=== PATIENT | male | born 1935 | race Caucasian/White ===

== ENCOUNTER 2016-11-01 19:52 | Emergency (ER) | payer MEDICARE, OTHER ==
[~2016-11-01] VITALS: Ht 160 cm; Wt 80.0 kg
[~2016-11-01 19:52] MED LIST: AMIT25TA28 PO; ASPI81TA28 PO; CLOT1CRE TOP; GABA-560 PO; HYDR25TA32 PO; LISI40TA4 PO; METF500T4 PO; METO25TE47 PO; PRAV80TA17 PO; SIMV40TA5 PO; [UNRECOGNIZED DRUG - CODE] PO
[2016-11-01 19:55] VITALS: BP 165/90
--- NOTE | 2016-11-01 20:10 | NUR ---
AMBULATED TO ER BED 7
--- NOTE | 2016-11-01 20:11 | NUR ---
80 Y/O M W/C/O SKIN TEAR WITH AN OBJECT DOOR TO R FOREARM X TODAY. BLEEDING UNDER CONTROL. NO OTHER S/S OF DISTRESS NOTED. ER MD MADE AWARE.
--- NOTE | 2016-11-01 20:13 | NUR ---
Patient being evaluated by physician at bedside.
[2016-11-01 20:42] VITALS: BP 143/87
--- NOTE | 2016-11-01 20:42 | NUR ---
Patient discharged with v/s stable. Written and verbal after care instructions given and explained. Patient alert, oriented and verbalized understanding of instructions. Ambulatory with steady gait. All questions addressed prior to discharge. ID band removed. Patient advised to follow up with PMD IN 2-3 DAYS.
== END 2016-11-01 20:42 | disposition home or self-care (01) ==
LOC: MED 19:52
DX: S51.011A Laceration without foreign body of right elbow, initial encounter (principal); E11.9 Type 2 diabetes mellitus without complications; I10 Essential (primary) hypertension; Z79.82 Long term (current) use of aspirin; Z85.038 Personal history of other malignant neoplasm of large intestine; W26.8XXA Contact with other sharp object(s), not elsewhere classified, initial encounter; Y93.89 Activity, other specified; Y92.89 Other specified places as the place of occurrence of the external cause; Y99.8 Other external cause status
CPT/HCPCS: 90471; 90715; 99283

== ENCOUNTER 2016-11-10 10:01 | Emergency (ER) | payer MEDICARE, OTHER ==
[~2016-11-10] VITALS: Ht 165.1 cm; Wt 81.6 kg
[2016-11-10 11:20] VITALS: BP 172/85
--- NOTE | 2016-11-10 11:52 | NUR ---
Patient ambulated to bed 8. RN evaluating patient at bedside.
[2016-11-10 12:01] LABS: BASOPHILS # (AUTO) 0.3 K/uL (0.00-0.22); EOSINOPHILS # (AUTO) 0.3 K/uL (0-0.4); HEMATOCRIT 50.6 % (36-52); HEMOGLOBIN 16.5 g/dL (12.0-18.0); LYMPHOCYTES # (AUTO) 1.3 K/uL (2.0-11.5); LYMPHOCYTES % (AUTO) 15.3 % (20.5-51.1); MEAN CORPUSCULAR HEMOGLOBIN 30 pg (27-31); MEAN CORPUSCULAR HGB CONC 33 g/dL (33-37); MEAN CORPUSCULAR VOLUME 93 fL (80-94); MONOCYTES # (AUTO) 0.8 K/uL (0.8-1.0); MONOCYTES % (AUTO) 9.1 % (1.7-9.3); NEUTROPHILS # (AUTO) 5.8 K/uL (1.8-7.7); NEUTROPHILS % (AUTO) 68.6 % (42.2-75.2); PLATELET COUNT (AUTO) 218 K/uL (140-450); RED BLOOD CELL COUNT(AUTO) 5.45 MIL/uL (4.20-6.10); WHITE BLOOD COUNT (AUTO) 8.5 K/uL (4.8-10.8)
[2016-11-10 12:17] LABS: ANION GAP 11.5 (8-16); CARBON DIOXIDE 23.2 mmol/L (21-32); CHLORIDE 109 mmol/L (98-107); CREATININE 0.7 mg/dL (0.7-1.3); GLUCOSE 125 mg/dL (74-106); POTASSIUM 3.7 mmol/L (3.5-5.1); SODIUM SERUM 140 mmol/L (136-145); UREA NITROGEN, BLOOD 11 mg/dL (7-18)
[2016-11-10 12:22] LABS: ALBUMIN 3.6 g/dL (3.4-5.0); ASPARTATE AMINOTRANSFERASE 30 U/L (15-37); TOTAL BILIRUBIN 1.2 mg/dL (0.0-1.0)
--- NOTE | 2016-11-10 12:25 | NUR ---
FIRST CONTACT WITH PT. 80 YO MALE C/O PRODUCTIVE COUGH X5D, WITH YELLOW PHLEM. A&OX4, VSS, GURNEY TO LOWEST LEVEL,BED RAIL UP, RESTING ON GURNEY
[2016-11-10 12:31] VITALS: BP 172/85
--- NOTE | 2016-11-10 12:32 | NUR ---
Patient discharged with v/s stable. Written and verbal after care instructions given and explained. Patient alert, oriented and verbalized understanding of instructions. Ambulatory with steady gait. All questions addressed prior to discharge. ID band removed. Patient advised to follow up with PMD. Rx of KEFLEX, PROMETHAZINE given. Patient educated on indication of medication including possible reaction and side effects. Opportunity to ask questions provided and answered.
== END 2016-11-10 12:32 | disposition home or self-care (01) ==
LOC: MED 10:01
DX: J20.9 Acute bronchitis, unspecified (principal); Z85.038 Personal history of other malignant neoplasm of large intestine; E11.9 Type 2 diabetes mellitus without complications; F03.90 Unspecified dementia, unspecified severity, without behavioral disturbance, psychotic disturbance, mood disturbance, and anxiety
CPT/HCPCS: 36415; 71010; 80053; 85025; 99285

== ENCOUNTER 2017-12-05 21:32 | Emergency (ER) | payer MEDICARE, OTHER ==
[~2017-12-05] VITALS: Ht 154.9 cm; Wt 79.4 kg
[~2017-12-05 21:32] MED LIST changes: +ASPI-1271 PO; -ASPI81TA28 PO; -METF500T4 PO; +METF500T6 PO; -METO25TE47 PO; +METO25TE71 PO
[2017-12-05 21:58] VITALS: BP 158/86
--- NOTE | 2017-12-05 21:58 | NUR ---
TO BED # 5 AMBULATORY, REPORT GIVEN TO PEYTON DUARTE
--- NOTE | 2017-12-05 22:00 | NUR ---
PT PRESENTED ER WITH POST STATUS FALL. PT FELL ANF HIT SOME WOOD AND SCRATCHED HIS LEFT ARM TODAY. AN ABRASION TO THE LEFT FOREARM. SOME MINOR BRUSING AND SMALL LACERASIONS TO THE ARM. PT IS A/O X 4. PT STATES NO PAIN AT THIS TIME 0/10.PT STATES NO LOC, DENIES HITTING HEAD OR INJURY TO ANY OTHER PART OF BODY. NKA AND MEDICAL HX IS DM AND COLON CANCER. FAMILY AT BEDSIDE. SKIN IS PINK/WARM/DRY; WITH EVEN AND STEADY GAIT; VSS; PATIENT POSITIONED FOR COMFORT; HOB ELEVATED; BEDRAILS UP X2; BED DOWN. ER MD MADE AWARE OF PT STATUS.
[2017-12-05] MEDS ORDERED: BACITRACIN OINT 500 UNITS/GM PKT TP ONE (22:30)
--- NOTE | 2017-12-05 22:54 | NUR ---
XRAY AT BEDSIDE
[2017-12-05 22:57] LABS: BASOPHILS % (AUTO) 0.4 % (0.0-2.0); EOSINOPHILS # (AUTO) 0.2 K/uL (0-0.4); EOSINOPHILS % (AUTO) 2.5 % (0.0-4.0); HEMOGLOBIN 16.1 g/dL (12.0-18.0); LYMPHOCYTES # (AUTO) 1.5 K/uL (2.0-11.5); LYMPHOCYTES % (AUTO) 15.7 % (20.5-51.1); MEAN CORPUSCULAR HEMOGLOBIN 31 pg (27-31); MEAN CORPUSCULAR HGB CONC 34 g/dL (33-37); MEAN CORPUSCULAR VOLUME 92.2 fL (80-94); MONOCYTES # (AUTO) 1.2 K/uL (0.8-1.0); NEUTROPHILS # (AUTO) 6.8 K/uL (1.8-7.7); NEUTROPHILS % (AUTO) 69.4 % (42.2-75.2); PLATELET COUNT (AUTO) 208 K/uL (140-450); RED CELL DISTRIBUTION WIDTH 14.2 % (11.6-13.7); WHITE BLOOD COUNT (AUTO) 9.8 K/uL (4.8-10.8)
[2017-12-05 23:05] LABS: ANION GAP 6.1 (8-16); CARBON DIOXIDE 26.8 mmol/L (21-32); CHLORIDE 109 mmol/L (98-107); CREATININE 0.9 mg/dL (0.7-1.3); GLUCOSE 95 mg/dL (74-106); POTASSIUM 3.9 mmol/L (3.5-5.1); SODIUM SERUM 138 mmol/L (136-145); UREA NITROGEN, BLOOD 17 mg/dL (7-18)
--- NOTE | 2017-12-06 00:09 | NUR ---
PT SITTING UP IN BED, VITALS STABLE, PENDING D/C PER DR. ESPINOZA.
[2017-12-06 00:15] VITALS: BP 145/76
--- NOTE | 2017-12-06 00:15 | NUR ---
Patient discharged with v/s stable. Written and verbal after care instructions given and explained. Patient alert, oriented and verbalized understanding of instructions. Ambulatory with steady gait. All questions addressed prior to discharge. ID band removed. Patient advised to follow up with PMD. Rx of Bacitracin and Tylenol given. Patient educated on indication of medication including possible reaction and side effects. Opportunity to ask questions provided and answered.
== END 2017-12-06 00:15 | disposition home or self-care (01) ==
LOC: MED 21:32
DX: S50.812A Abrasion of left forearm, initial encounter (principal); E11.9 Type 2 diabetes mellitus without complications; F03.90 Unspecified dementia, unspecified severity, without behavioral disturbance, psychotic disturbance, mood disturbance, and anxiety; I10 Essential (primary) hypertension; Z85.038 Personal history of other malignant neoplasm of large intestine; Z79.899 Other long term (current) drug therapy; W22.8XXA Striking against or struck by other objects, initial encounter; Y93.89 Activity, other specified; Y92.89 Other specified places as the place of occurrence of the external cause; Y99.8 Other external cause status
CPT/HCPCS: 36415; 73090; 80048; 84484; 85025; 90471; 90715; 93005; 99285; Q0092

== ENCOUNTER 2019-01-23 15:36 | Observation (INO) | payer MEDICARE, OTHER ==
[~2019-01-23] VITALS: Ht 172.7 cm; Wt 73.5 kg
[~2019-01-23 15:36] MED LIST changes: +METF-988 PO; -METF500T6 PO; +SIMV-33 PO; -SIMV40TA5 PO
[2019-01-23 15:45] VITALS: BP 152/76
--- NOTE | 2019-01-23 15:45 | NUR ---
PT ARRIVED TO ED C/O CHEST PAIN X 2 WEEKS. RATES PAIN 2/10. PT STAETS IT COMES AND GOES. HEART SPUNDS S1S2 PRESENT. LUNG SOUNDS CLEAR ALL THORUGHOUT. NO COUGH PRESENT.VSS. NO DISTRESS NOTED. NKA. PMH: HIGH CHOLESTEROL, HTN, BPH.
[2019-01-23] MEDS ORDERED: ASPIRIN 81 MG TAB.CHEW PO ONE (16:10)
[2019-01-23] MEDS ORDERED: NACL 0.9% 1,000 ML IV ONE (16:10)
[2019-01-23] MEDS ORDERED: METOPROLOL 25 MG TAB PO ONE (16:15)
--- NOTE | 2019-01-23 16:34 | NUR ---
XR AT BEDSIDE.
[2019-01-23 16:36] LABS: BASOPHILS % (AUTO) 0.3 % (0.0-2.0); EOSINOPHILS # (AUTO) 0.2 K/uL (0-0.4); EOSINOPHILS % (AUTO) 2.6 % (0.0-4.0); HEMATOCRIT 48.8 % (36-52); HEMOGLOBIN 16.3 g/dL (12.0-18.0); LYMPHOCYTES # (AUTO) 1.5 K/uL (2.0-11.5); LYMPHOCYTES % (AUTO) 18.3 % (20.5-51.1); MEAN CORPUSCULAR HEMOGLOBIN 31 pg (27-31); MEAN CORPUSCULAR HGB CONC 33 g/dL (33-37); MEAN CORPUSCULAR VOLUME 93.4 fL (80-94); MONOCYTES # (AUTO) 0.6 K/uL (0.8-1.0); NEUTROPHILS % (AUTO) 71.8 % (42.2-75.2); PLATELET COUNT (AUTO) 234 K/uL (140-450); RED BLOOD CELL COUNT(AUTO) 5.22 MIL/uL (4.20-6.10); WHITE BLOOD COUNT (AUTO) 8.3 K/uL (4.8-10.8)
[2019-01-23 16:56] LABS: ALBUMIN 3.3 g/dL (3.4-5.0); ANION GAP 15.2 (8-16); ASPARTATE AMINOTRANSFERASE 23 U/L (15-37); CARBON DIOXIDE 24.6 mmol/L (21-32); CHLORIDE 105 mmol/L (98-107); CREATININE 0.8 mg/dL (0.7-1.3); GLUCOSE 102 mg/dL (74-106); POTASSIUM 3.8 mmol/L (3.5-5.1); SODIUM SERUM 141 mmol/L (136-145); TOTAL BILIRUBIN 1.4 mg/dL (0.0-1.0); UREA NITROGEN, BLOOD 15 mg/dL (7-18)
[2019-01-23] MEDS ORDERED: MORPHINE SULFATE 2 MG/ML SYR IVP PRN (18:05)
[2019-01-23] MEDS ORDERED: DOCUSATE SODIUM 100 MG GELCAP PO PRN (18:05)
[2019-01-23] MEDS ORDERED: ACETAMINOPHEN 325 MG TAB PO PRN (18:05)
[2019-01-23] MEDS ORDERED: HYDROcodone/APAP 7.5/325 MG 1 TAB PO PRN (18:05)
[2019-01-23] MEDS ORDERED: ONDANSETRON 4 MG/2 ML VIAL IM/IVP PRN (18:05)
--- NOTE | 2019-01-23 18:15 | NUR ---
PT UNABLE TO RECALL MEDICATIONS. PT WILL CALL HIS AND HAVE HER BRING DOWN HIS MEDICATIONS FOR MED RECONCILIATION.
[2019-01-23 18:36] LABS: MAGNESIUM 2.1 mg/dL (1.8-2.4); PHOSPHORUS 3.8 mg/dL (2.5-4.9); THYROID STIMULATING HORMONE 1.31 uIU/mL (0.34-3.74)
--- NOTE | 2019-01-23 18:40 | NUR ---
Patient will be admitted to care of DR. REYES. Admited to TELE. Will go to room 128B. Belongings list completed. Report to FELICIA SEGURA .
[2019-01-23 19:30] VITALS: BP 144/69
--- NOTE | 2019-01-23 19:30 | NUR ---
RECEIVED REPORT FROM AM SHIFT NURSE. PATIENT ALERT AND ORIENTED X3. LIBERIAN SPEAKING ONLY. 20 G ON LEFT AC RUNNING IVF. WITH C/O 7/10 CHEST PAIN, ACHING. MEDICATED PER PAIN SCALE. NO APPARENT DISTRESS NOTED. CONTINENT. ABLE TO AMBULATE TO BATHROOM WITH ASSISTANCE. WILL CONTINUE TO MONITOR.
[2019-01-23] MEDS: NACL 0.9% 1,000 ML IV SCH (19:56)
[2019-01-23] MEDS ORDERED: INSULIN LISPRO SLIDING SCALE 100 UNITS/ML VIAL SUBQ PRN (20:30)
[2019-01-23] MEDS ORDERED: NITROGLYCERIN 0.4 MG TAB SL PRN (20:30)
[2019-01-23] MEDS ORDERED: DEXTROSE 50% 50 ML SYR IVP PRN (20:30)
--- NOTE | 2019-01-23 21:25 | NUR ---
PATIENT AWAKE IN BED. NO APPARENT DISTRESS NOTED. WILL CONTINUE TO MONITOR.
[2019-01-23] MEDS: BLOOD GLUCOSE MONITORING 1 DEV DEV FS SCH (21:35)
[2019-01-23] MEDS ORDERED: PANTOPRAZOLE 40 MG INJ VIAL IVP SCH (22:00)
[2019-01-23] MEDS ORDERED: LISI10TA11 PO (22:44)
[2019-01-23] MEDS ORDERED: TAMS0.4C96 PO (22:44)
[2019-01-23] MEDS ORDERED: ATOR10TA PO (22:44)
[2019-01-23] MEDS ORDERED: GABA100C PO (22:44)
--- NOTE | 2019-01-23 23:20 | NUR ---
PATIENT AWAKE IN BED, RESTING WITH FAMILY. NO APPARENT DISTRESS NOTED. WILL CONTINUE TO MONITOR.
[2019-01-24] VITALS: BP 148/59
[2019-01-24 00:56] LABS: APPEARANCE,URINE CLEAR (CLEAR); BILIRUBIN,URINE NEGATIVE (NEGATIVE); BLOOD, URINE NEGATIVE (NEGATIVE); COLOR,URINE YELLOW (YELLOW); LEUKOCYTE ESTERASE ,URINE NEGATIVE (NEGATIVE); NITRITE, URINE NEGATIVE (NEGATIVE); UGLUCOSE NEGATIVE (NEGATIVE)
--- NOTE | 2019-01-24 01:15 | NUR ---
PATIENT ASLEEP IN BED. NO APPARENT DISTRESS NOTED. WILL CONTINUE TO MONITOR.
--- NOTE | 2019-01-24 03:16 | NUR ---
ROUNDS DONE. PATIENT ASLEEP IN BED. VISIBLE CHEST RISE AND FALL NOTED. NO APPARENT DISTRESS NOTED. WILL CONTINUE TO MONITOR.
[2019-01-24 04:00] VITALS: BP 117/57
--- NOTE | 2019-01-24 05:15 | NUR ---
PATIENT ASLEEP IN BED. NO APPARENT DISTRESS NOTED. VISIBLE CHEST RISE AND FALL NOTED. WILL CONTINUE TO MONITOR.
[2019-01-24] MEDS: BLOOD GLUCOSE MONITORING 1 DEV DEV FS SCH ×4 (05:49→20:49)
[2019-01-24 06:25] LABS: ANION GAP 13.1 (8-16); CARBON DIOXIDE 24.6 mmol/L (21-32); CHLORIDE 108 mmol/L (98-107); CREATININE 0.7 mg/dL (0.7-1.3); GLUCOSE 97 mg/dL (74-106); PHOSPHORUS 3.8 mg/dL (2.5-4.9); POTASSIUM 3.7 mmol/L (3.5-5.1); SODIUM SERUM 142 mmol/L (136-145); UREA NITROGEN, BLOOD 12 mg/dL (7-18)
[2019-01-24 06:42] LABS: CHOL/HDL RATIO 3.2 (1-4.5)
[2019-01-24 06:54] LABS: BASOPHILS # (AUTO) 0.1 K/uL (0.00-0.22); BASOPHILS % (AUTO) 0.7 % (0.0-2.0); EOSINOPHILS # (AUTO) 0.4 K/uL (0-0.4); EOSINOPHILS % (AUTO) 5.2 % (0.0-4.0); HEMATOCRIT 42.9 % (36-52); HEMOGLOBIN 14.3 g/dL (12.0-18.0); LYMPHOCYTES # (AUTO) 1.7 K/uL (2.0-11.5); MEAN CORPUSCULAR HEMOGLOBIN 31 pg (27-31); MEAN CORPUSCULAR HGB CONC 33 g/dL (33-37); MEAN CORPUSCULAR VOLUME 94.1 fL (80-94); MONOCYTES # (AUTO) 0.7 K/uL (0.8-1.0); MONOCYTES % (AUTO) 9.9 % (1.7-9.3); NEUTROPHILS # (AUTO) 4.5 K/uL (1.8-7.7); NEUTROPHILS % (AUTO) 61.2 % (42.2-75.2); PLATELET COUNT (AUTO) 211 K/uL (140-450); RED BLOOD CELL COUNT(AUTO) 4.55 MIL/uL (4.20-6.10); RED CELL DISTRIBUTION WIDTH 13.9 % (11.6-13.7); WHITE BLOOD COUNT (AUTO) 7.3 K/uL (4.8-10.8)
--- NOTE | 2019-01-24 07:15 | NUR ---
ENDORSED TO AM SHIFT NURSE FOR CONTINUITY OF CARE.
--- NOTE | 2019-01-24 07:17 | NUR ---
RECEIVE REPORT FROM NIGHT NURSE. PT AWAKE AND ALERT. PT IS STABLE, ON ROOM AIR RESPIRATION ARE EVEN AND UNLABORED. PT ASKED WHEN HIS BREAKFAST WAS DUE. PT WAS INFORMED OF TIME OF BREAKFAST. IV RUNNING NS AT 60 ML/HR. CALL LIGHT WITHIN REACH.
[2019-01-24 08:00] VITALS: BP 124/61
--- NOTE | 2019-01-24 08:25 | NUR ---
PATIENT HAS BEEN SCREENED AND CATEGORIZED MODERATE NUTRITION RISK. PATIENT WILL BE SEEN WITHIN 3-5 DAYS OF ADMISSION. 01/26/19 01/28/[address]
[2019-01-24] MEDS ORDERED: TAMSULOSIN 0.4 MG CAP PO SCH (08:30)
[2019-01-24] MEDS ORDERED: ASPIRIN 81 MG TAB.CHEW PO SCH (09:00)
[2019-01-24] MEDS ORDERED: LISINOPRIL 5 MG TAB PO SCH (09:00)
[2019-01-24] MEDS: METOPROLOL 25 MG TAB PO SCH ×2 (09:00→20:47)
[2019-01-24] MEDS ORDERED: LISINOPRIL 10 MG TAB PO SCH (09:00)
[2019-01-24] MEDS: NACL 0.9% 1,000 ML IV SCH (09:09)
--- NOTE | 2019-01-24 09:50 | NUR ---
PT IS AWAKE AND ALERT. PT IS WATCHING TV. PT IS STABLE, RESPIRATIONS ARE EVEN AND UNLABORED AT ROOM AIR. CALL LIGHT WITHIN REACH.
[2019-01-24] MEDS: GABAPENTIN 100 MG CAP PO SCH ×3 (10:12→16:28)
[2019-01-24] MEDS ORDERED: NITR0.4T1 SL (11:43)
[2019-01-24 12:00] VITALS: BP 131/60
--- NOTE | 2019-01-24 13:30 | NUR ---
PT IN BED, AT THE BEDSIDE. TECH AT THE BEDSIDE DOING A ECHO. PT IS STABLE, RESPIRATION ARE EVEN AND UNLABORED ON ROOM AIR. CALL LIGHT WITHIN REACH.
--- NOTE | 2019-01-24 15:20 | NUR ---
PT SITTING IN BED. PT SAID HE STILL WAITING FOR THE OTHER DOCTOR TO TALK TO HIM ABOUT ANXIETY. PT IS STABLE, RESPIRATION ARE EVEN AND UNLABORED ON ROOM AIR. CALL LIGHT WITHIN REACH. IV RUNNING 60 ML/H.
[2019-01-24 16:00] VITALS: BP 122/63
--- NOTE | 2019-01-24 16:55 | NUR ---
DC PLANNING: IP POST STABILIZATION FORM FAXED TO [facility] AT [phone].
--- NOTE | 2019-01-24 18:33 | NUR ---
PT LAYING IN BED. PT STATES HE IS STILL WAITING ON PSYCHIATRIST. PT IS STABLE, RESPIRATION ARE EVEN AND UNLABORED ON ROOM AIR. IV RUNNING NS AT 60 ML/H. AT THE BEDSIDE. CALL LIGHT WITHIN REACH.
--- NOTE | 2019-01-24 19:15 | NUR ---
GAVE REPORT TO NIGHT NURSE FOR CONTINUITY OF CARE. PT IS IN BED. PT IS STABLE, RESPIRATIONS ARE EVEN AND UNLABORED ON ROOM AIR. CALL LIGHT WITHIN REACH. AT BEDSIDE.
[2019-01-24] MEDS ORDERED: ESCI5TAB PO (19:44)
--- NOTE | 2019-01-24 20:20 | NUR ---
PT. DISCHARGED TO HOME ORDERED. DISCHARGE INSTRUCTIONS GIVEN BY PAULA RN IN [place] . PSYCH CONSULT IN HERE AND SEEN PT. REMINDED THAT PRESCRIPTIONS IN THEIR CHOICE OF PHARMACY SENT BY . "SI" NO COMPLAINTS DONE . ALL BELONGINGS ACCOUNTED FOR AND WITH OF PT. IVF SITE DISCONTINUED BY ME. COVERED WITH BAND AID. NO BLEEDING.
[2019-01-24 20:45] VITALS: BP 146/81
[2019-01-24] MEDS ORDERED: ATORVASTATIN 20 MG TAB PO SCH (21:00)
== END 2019-01-24 21:15 | disposition home or self-care (01) ==
LOC: MED 15:36 → MMU 18:06 → INTOOBSV 18:06 → MMU 18:30 → UNDODISIN 01-24 21:15
PROVIDERS: ADMIT General Practice; ATTEND General Practice
DX: R07.89 Other chest pain (principal); E44.1 Mild protein-calorie malnutrition; J98.11 Atelectasis; E11.40 Type 2 diabetes mellitus with diabetic neuropathy, unspecified; F03.90 Unspecified dementia, unspecified severity, without behavioral disturbance, psychotic disturbance, mood disturbance, and anxiety; I10 Essential (primary) hypertension; E78.5 Hyperlipidemia, unspecified; N40.0 Benign prostatic hyperplasia without lower urinary tract symptoms; Z85.038 Personal history of other malignant neoplasm of large intestine; Z79.84 Long term (current) use of oral hypoglycemic drugs; Z79.82 Long term (current) use of aspirin; Z79.899 Other long term (current) drug therapy
CPT/HCPCS: 36415; 71045; 80048; 80053; 80061; 81003; 82948; 83036; 83735; 83880; 84100; 84443; 84484; 85025; 85610; 85730; 87081; 93005; 93307; 96374; 96375; 99285; C9113; G0378; J2270; J7030; Q0092; 96360; 96361

== ENCOUNTER 2019-03-05 12:03 | Emergency (ER) | payer MEDICARE, OTHER ==
[~2019-03-05] VITALS: Ht 170.2 cm; Wt 72.6 kg
[~2019-03-05 12:03] MED LIST changes: -AMIT25TA28 PO; -ASPI-1271 PO; +ATOR10TA PO; -CLOT1CRE TOP; +ESCI5TAB PO; -GABA-560 PO; +GABA100C PO; -HYDR25TA32 PO; +LISI10TA11 PO; -LISI40TA4 PO; -METF-988 PO; -METO25TE71 PO; +NITR0.4T1 SL; -PRAV80TA17 PO; -SIMV-33 PO; +TAMS0.4C96 PO; -[UNRECOGNIZED DRUG - CODE] PO
[2019-03-05 12:17] VITALS: BP 143/69
--- NOTE | 2019-03-05 14:58 | NUR ---
PT AMBULATED TO ER BED 10
--- NOTE | 2019-03-05 15:29 | NUR ---
Bahamian speaking 83 y/m c/o persistant tenacious productive cough >6 months---intermittent sob nasal congestion. Full clear speech with no accessory muscle use noted at this time. Breath sound clear bilaterally on room SPO2 95% denies sob, sore throat, n/v/d, or cp at this time hx--htn, depression rx--;;
--- NOTE | 2019-03-05 17:02 | NUR ---
Patient discharged with v/s stable. Written and verbal after care instructions given and explained. Patient alert, oriented and verbalized understanding of instructions. Ambulatory with steady gait. All questions addressed prior to discharge. ID band removed. Patient advised to follow up with PMD. Rx of Motrin, Prednisone, Azithromycin given. Patient educated on indication of medication including possible reaction and side effects. Opportunity to ask questions provided and answered.
[2019-03-05 17:03] VITALS: BP 146/69
== END 2019-03-05 17:02 | disposition home or self-care (01) ==
LOC: MED 12:03
DX: R05 Cough (principal); J34.89 Other specified disorders of nose and nasal sinuses; R07.9 Chest pain, unspecified; E11.9 Type 2 diabetes mellitus without complications; F03.90 Unspecified dementia, unspecified severity, without behavioral disturbance, psychotic disturbance, mood disturbance, and anxiety; I10 Essential (primary) hypertension; Z98.890 Other specified postprocedural states; Z85.028 Personal history of other malignant neoplasm of stomach; Z79.899 Other long term (current) drug therapy
CPT/HCPCS: 71046; 99283

== ENCOUNTER 2019-03-14 17:05 | Emergency (ER) | payer MEDICARE, OTHER ==
[~2019-03-14] VITALS: Ht 162.6 cm; Wt 73.9 kg
[~2019-03-14 17:05] MED LIST changes: +AMIT25TA28 PO; +ASPI-1271 PO; +CLOT1CRE TOP; +GABA-560 PO; +HYDR25TA32 PO; +LISI40TA4 PO; +METF-988 PO; +METO25TE71 PO; +PRAV80TA17 PO; +SIMV-33 PO; +[UNRECOGNIZED DRUG - CODE] PO
[2019-03-14 17:17] VITALS: BP 121/57
--- NOTE | 2019-03-14 17:23 | NUR ---
WAIT AT LOBBY.
--- NOTE | 2019-03-14 19:24 | NUR ---
PT AMBULATED TO CHAIR C
--- NOTE | 2019-03-14 19:55 | NUR ---
ASSESSMENT COMPLETE. PATIENT SITTING UP IN CHAIR. NO DISTRESS NOTED. ASSESSMENT NOTE: BIB SELF REPORTING COUGH FOR 4 MONTHS. SEEN HERE ON 03-05-2019 AND GIVEN RX OF AZITHROMYCIN, IBUPROFEN AND PEDNISONE. HAS BEEN TAKING THE MEDICATIONS WITH NO RELIEF. STATES THAT HE STILL HAS A LOT OF MUCUS HE IS COUGHING UP AND BLOWING OUT OF HIS NOSE. HIS LUNGS ARE CLEAR BILATERALLY. ABD SOFT NON-TENDER. NO FEVERS, NVD, OR PAIN REPORTED.
[2019-03-14 21:20] VITALS: BP 121/57
--- NOTE | 2019-03-14 21:21 | NUR ---
Patient discharged with v/s stable. Written and verbal after care instructions given and explained. Patient alert, oriented and verbalized understanding of instructions. Ambulatory with steady gait. All questions addressed prior to discharge. ID band removed. Patient advised to follow up with PMD. Rx of AZITHROMYCIN, ROBOTUSSIN given. Patient educated on indication of medication including possible reaction and side effects. Opportunity to ask questions provided and answered.
== END 2019-03-14 21:21 | disposition home or self-care (01) ==
LOC: MED 17:05
DX: J20.9 Acute bronchitis, unspecified (principal); E11.9 Type 2 diabetes mellitus without complications; F03.90 Unspecified dementia, unspecified severity, without behavioral disturbance, psychotic disturbance, mood disturbance, and anxiety; I10 Essential (primary) hypertension; Z85.038 Personal history of other malignant neoplasm of large intestine; Z90.49 Acquired absence of other specified parts of digestive tract; Z79.899 Other long term (current) drug therapy
CPT/HCPCS: 71045; 99283

== ENCOUNTER 2019-04-06 12:10 | Inpatient (IN) | payer MEDICARE, OTHER ==
[~2019-04-06] VITALS: Ht 160 cm; Wt 71.7 kg
[~2019-04-06 12:10] MED LIST changes: -AMIT25TA28 PO; -ASPI-1271 PO; -CLOT1CRE TOP; -GABA-560 PO; -HYDR25TA32 PO; -LISI40TA4 PO; -METF-988 PO; -METO25TE71 PO; -PRAV80TA17 PO; -SIMV-33 PO; -[UNRECOGNIZED DRUG - CODE] PO
[2019-04-06 12:44] VITALS: BP 127/64
--- NOTE | 2019-04-06 12:47 | NUR ---
TO LOBBY, VSS. AWAITING BED IN ED.
--- NOTE | 2019-04-06 14:08 | NUR ---
Patient ambulated to bed 7. RN evaluating patient at bedside.
[2019-04-06] MEDS ORDERED: LEVOFLOXACIN 750 MG/D5W PREMIX 150 ML IV ONE (14:45)
[2019-04-06] MEDS ORDERED: cefTRIAXone 1,000 MG VIAL ONE (15:09)
--- NOTE | 2019-04-06 15:20 | NUR ---
83 y/o M presents to ER c/o cough x3 months. Per pt he has been taking cough medication without any relife. Denies fever/chills. Denies N/V/D. A&O x4. Vital Signs Stable. HOB elevated, bed in lowest position, bed rail up x1. Will continue to monitor. Allergies: NKA Med hx: DM, HDL, HTN
[2019-04-06] MEDS ORDERED: ACETAMINOPHEN 325 MG TAB PO PRN (15:25)
[2019-04-06] MEDS ORDERED: DOCUSATE SODIUM 100 MG GELCAP PO PRN (15:25)
[2019-04-06] MEDS ORDERED: HYDROcodone/APAP 5/325 MG 1 TAB TAB PO PRN (15:25)
[2019-04-06] MEDS ORDERED: MORPHINE SULFATE 2 MG/ML SYR IVP PRN (15:25)
[2019-04-06] MEDS ORDERED: ONDANSETRON 4 MG/2 ML VIAL IM/IVP PRN (15:25)
[2019-04-06] MEDS ORDERED: DEXTROSE 50% 50 ML SYR IVP PRN ×2 (15:30→16:35)
[2019-04-06 15:38] LABS: BASOPHILS % (AUTO) 0.5 % (0.0-2.0); EOSINOPHILS % (AUTO) 0.4 % (0.0-4.0); HEMATOCRIT 46.3 % (36-52); LYMPHOCYTES # (AUTO) 0.7 K/uL (2.0-11.5); LYMPHOCYTES % (AUTO) 10.2 % (20.5-51.1); MEAN CORPUSCULAR HEMOGLOBIN 30 pg (27-31); MEAN CORPUSCULAR HGB CONC 32 g/dL (33-37); MEAN CORPUSCULAR VOLUME 93.6 fL (80-94); MONOCYTES # (AUTO) 0.2 K/uL (0.8-1.0); MONOCYTES % (AUTO) 2.9 % (1.7-9.3); NEUTROPHILS # (AUTO) 6.3 K/uL (1.8-7.7); PLATELET COUNT (AUTO) 247 K/uL (140-450); RED BLOOD CELL COUNT(AUTO) 4.95 MIL/uL (4.20-6.10); RED CELL DISTRIBUTION WIDTH 13.9 % (11.6-13.7); WHITE BLOOD COUNT (AUTO) 7.3 K/uL (4.8-10.8)
--- NOTE | 2019-04-06 15:57 | NUR ---
Pt ambulated to restroom to provide urine sample
[2019-04-06 16:00] VITALS: BP 128/53
[2019-04-06 16:04] LABS: MAGNESIUM 2.3 mg/dL (1.8-2.4); PHOSPHORUS 3.4 mg/dL (2.5-4.9)
[2019-04-06 16:06] LABS: ALBUMIN 3.2 g/dL (3.4-5.0); ANION GAP 11.1 (8-16); ASPARTATE AMINOTRANSFERASE 18 U/L (15-37); CARBON DIOXIDE 27.9 mmol/L (21-32); CHLORIDE 103 mmol/L (98-107); CREATININE 0.7 mg/dL (0.6-1.3); GLUCOSE 107 mg/dL (74-106); SODIUM SERUM 138 mmol/L (136-145); TOTAL BILIRUBIN 0.9 mg/dL (0.0-1.0); UREA NITROGEN, BLOOD 9 mg/dL (7-18)
--- NOTE | 2019-04-06 16:15 | NUR ---
Transfer of care and report given to FELICIA Schmid
--- NOTE | 2019-04-06 16:16 | NUR ---
Patient will be admitted to care of Dr. Simon. Admited to Tele. Will go to room 126A. Belongings list completed. Report to FELICIA Schmid.
[2019-04-06 16:20] LABS: PROTHROMBIN TIME 10.1 secs (10.8-13.4)
[2019-04-06 16:23] LABS: BILIRUBIN,URINE NEGATIVE (NEGATIVE); BLOOD, URINE TRACE-I (NEGATIVE); COLOR,URINE YELLOW (YELLOW); LEUKOCYTE ESTERASE ,URINE TRACE (NEGATIVE); NITRITE, URINE NEGATIVE (NEGATIVE); UGLUCOSE NEGATIVE (NEGATIVE)
[2019-04-06] MEDS: BLOOD GLUCOSE MONITORING 1 DEV DEV FS SCH ×2 (16:30→21:00)
[2019-04-06] MEDS ORDERED: ALBUTEROL SULFATE/IPRATROPIU 3 ML SOL IH PRN (16:30)
[2019-04-06] MEDS ORDERED: BENZONATATE 100 MG CAPLF PO PRN (16:30)
--- NOTE | 2019-04-06 16:30 | NUR ---
GLUCOSE CHECKED =115. NO INSULIN COVERAGE NEEDED
--- NOTE | 2019-04-06 16:30 | NUR ---
RECEIVED REPORT FROM ER NURSE. PT IS AMBULATORY. PT IS STABLE NO SIGNS OF DISTRESS. PT HAS SALINE LOCK 20G AT LEFT AC. PT HAS TELE MONITOR. MRSA SWAB TAKEN AND FLU SWAB.
[2019-04-06 16:32] LABS: APPEARANCE,URINE SLIGHTLY CLOUDY (CLEAR)
[2019-04-06 16:33] LABS: RBC,URINE 0-5 /HPF (0-5); WBC,URINE 0-5 /HPF (0-5)
[2019-04-06] MEDS ORDERED: INSULIN LISPRO SLIDING SCALE 100 UNITS/ML VIAL SUBQ PRN (16:35)
--- NOTE | 2019-04-06 17:00 | NUR ---
FALL RISK BAND APPLIED. PT WANTS TO PUT HIS WALLET IN A SAFE. CALLED ADMITTING AND TALKED TO PEYTON , SHE SAID SHE WILL COME TO THE PT'S ROOM TO TAKE THE WALLET AND PUT IN A SAFE.
[2019-04-06] MEDS ORDERED: NITROGLYCERIN 0.4 MG TAB SL PRN (17:15)
[2019-04-06] MEDS ORDERED: AZITHROMYCIN 250 MG TAB PO SCH (17:30)
[2019-04-06] MEDS: NACL 0.9% 1,000 ML IV SCH (17:57)
--- NOTE | 2019-04-06 18:00 | NUR ---
SCHEDULED MEDS GIVEN. IVF NS STARTED AT 60ML/HR. CALL LIGHT WITHIN PT'S REACH, SIDERAILS UP, BED ON LOW.
--- NOTE | 2019-04-06 19:28 | NUR ---
REPORT GIVEN TO GYRO MECHANIC NURSE FOR CONTINUITY OF CARE. PT IS STABLE. FAMILY AT BEDSIDE. CALL LIGHT WITHIN PT'S REACH
--- NOTE | 2019-04-06 19:30 | NUR ---
TALKED TO HIS DAUGHTER PEYTON AND TOLD HER TO TAKE THE PT'S WALLET AND SHE AGREED.
--- NOTE | 2019-04-06 19:30 | NUR ---
RECIEVED PT AAOX4 , NID , IV SITE INTACT AND PATENT , DENIES ANY PAIN AT THIS TIME , ON SAFETY / FALL PRECAUTION PROTOCOL - CALL LIGHT WITHIN REACH . POC DISCUSSED AND VERBALIZE UNDERSTANDING . WILL CONT. TO MONITOR.
[2019-04-06 20:00] VITALS: BP 124/66
[2019-04-06] MEDS ORDERED: BLOOD GLUCOSE MONITORING 1 DEV DEV FS SCH (21:00)
--- NOTE | 2019-04-06 22:00 | NUR ---
MADE ROUNDS . NO COMPLAIN MADE AT THIS TIME , CALL LIGHT WITHIN REACH.
--- NOTE | 2019-04-07 | NUR ---
MADE ROUNDS . NO S/SXS OF ACUTE DISTRESS NOTED AT THIS TIME. CALL LIGHT WITHIN REACH.
[2019-04-07 04:00] VITALS: BP 117/61
--- NOTE | 2019-04-07 04:00 | NUR ---
MADE ROUNDS . NO S/ SXS OF ACUTE DISTRESS NOTED AT THIS TIME. - CALL LIGHT WITHIN REACH.
[2019-04-07] MEDS: BLOOD GLUCOSE MONITORING 1 DEV DEV FS SCH ×4 (06:00→21:02)
--- NOTE | 2019-04-07 06:54 | NUR ---
MADE ROUNDS . NO COMPLAIN MADE AT THIS TIME . CALL LOIGHT WITHIN REACH.
--- NOTE | 2019-04-07 07:15 | NUR ---
RECEIVED BEDSIDE REPORT FROM CENTRAL SUPPLY NURSE NURSE, PT IS ASLEEP, NO S/S OF DISTRESS, ON ROOM AIR, SKIN INTACT, IV IN THE L AC 20 G INFUSING NS 60 ML/HR. FALL PRECAUTIONS IN PLACE. CALL LIGHT IS WITHIN REACH
[2019-04-07 08:00] VITALS: BP 152/61
[2019-04-07] MEDS: NACL 0.9% 1,000 ML IV SCH (08:01)
[2019-04-07 10:19] LABS: BASOPHILS % (AUTO) 0.7 % (0.0-2.0); EOSINOPHILS # (AUTO) 0.2 K/uL (0-0.4); EOSINOPHILS % (AUTO) 3.2 % (0.0-4.0); HEMATOCRIT 45.9 % (36-52); HEMOGLOBIN 14.7 g/dL (12.0-18.0); LYMPHOCYTES # (AUTO) 1.5 K/uL (2.0-11.5); LYMPHOCYTES % (AUTO) 21.1 % (20.5-51.1); MEAN CORPUSCULAR HEMOGLOBIN 30 pg (27-31); MEAN CORPUSCULAR HGB CONC 32 g/dL (33-37); MEAN CORPUSCULAR VOLUME 94.9 fL (80-94); MONOCYTES # (AUTO) 0.7 K/uL (0.8-1.0); MONOCYTES % (AUTO) 9.7 % (1.7-9.3); NEUTROPHILS # (AUTO) 4.6 K/uL (1.8-7.7); NEUTROPHILS % (AUTO) 65.3 % (42.2-75.2); PLATELET COUNT (AUTO) 236 K/uL (140-450); RED BLOOD CELL COUNT(AUTO) 4.84 MIL/uL (4.20-6.10); RED CELL DISTRIBUTION WIDTH 13.9 % (11.6-13.7); WHITE BLOOD COUNT (AUTO) 7.1 K/uL (4.8-10.8)
[2019-04-07 10:28] LABS: CHLORIDE 107 mmol/L (98-107); POTASSIUM 3.9 mmol/L (3.5-5.1); SODIUM SERUM 143 mmol/L (136-145)
[2019-04-07 10:29] LABS: ANION GAP 9.5 (8-16); CARBON DIOXIDE 30.4 mmol/L (21-32); CREATININE 0.8 mg/dL (0.6-1.3); GLUCOSE 82 mg/dL (74-106); UREA NITROGEN, BLOOD 10 mg/dL (7-18)
[2019-04-07] MEDS: LACTOBACILLUS RHAMNOSUS GG 1 EACH CAP PO SCH (10:31)
[2019-04-07] MEDS: TAMSULOSIN 0.4 MG CAP PO SCH (10:32)
[2019-04-07] MEDS: LORATADINE 10 MG TAB PO SCH (10:32)
[2019-04-07] MEDS: LISINOPRIL 10 MG TAB PO SCH (10:32)
[2019-04-07] MEDS: ESCITALOPRAM 20 MG TAB PO SCH (10:33)
[2019-04-07] MEDS: FLUTICASONE NASAL 50 MCG/ACTUATION 16 GM BTL NS SCH (10:33)
--- NOTE | 2019-04-07 10:41 | NUR ---
AM MEDS ADMINISTERED, PT TOLERATED WELL.
[2019-04-07 12:00] VITALS: BP 122/60
--- NOTE | 2019-04-07 12:04 | NUR ---
DC PLANNIN YRS OLD MALE PT WAS ADMITTED FROM HOME WITH A DX OF BILATERAL PNEUMONIA . PT HAS A HX OF DM, HTN AND DYSLIPIDEMIA. CXR SHOWED PNEUMONIA , STARTED ROCEPHIN AND AZITHROMYCIN RT PROTOCOL, BLOOD, SPUTUM AND URINE CULTURE PENDING , CONTINUE HOME MEDS. DC PLAN TO GO HOME WITH FAMILY WHEN STABLE CM TO FOLLOW. Addendum: 04/09/19 at 1222 by Cleo Hardy CM CURRENT LABS WBC 7.6, H/H 14.5/43.2, NA/K 141/3.8, BUN/CREA 10/0.7. URINE AND BLOOD CULTURES NO GROWTH. NO CONSULTS AT THIS TIME. DC PLAN BACK TO HOME ONCE STABLE. Addendum: 04/09/19 at 1604 by Cleo Hardy CM ELIZABETH GOODMAN AT [phone], SHE STATED AUTH SHOULD BE COMING FROM [facility]. WILL FOLLOW UP WITH KASSIE. Addendum: 04/10/19 at 1537 by Kat Noble 04/10/19 POST STABILIZATION FORM FAXED TO [facility] [phone]
[2019-04-07 16:00] VITALS: BP 126/60
--- NOTE | 2019-04-07 18:00 | NUR ---
PT HAD A BM X 1
[2019-04-07] MEDS: AZITHROMYCIN 250 MG TAB PO SCH (18:14)
--- NOTE | 2019-04-07 18:30 | NUR ---
PT EATING DINNER AND WATCHING TV, NO S/S OF DISTRESS, CONTINUING TO MONITOR
--- NOTE | 2019-04-07 19:25 | NUR ---
RECEIVED BEDSIDE REPORT FROM AM SHIFT NURSE. PATIENT IS LYING IN BED, AWAKE AND ALERT, WATCHING TV. NO SOB OR DISTRESS NOTED. ON ROOM AIR. IV ACCESS ON LEFT AC 20 GAUGE. PATENT, INTACT AND INFUSING WELL. SKIN IS INTACT. BED IN LOW, SAFETY MEASURES IN PLACE. BOARD UPDATED. CALL LIGHT PLACED WITHIN PATIENT REACH. WILL CONTINUE TO MONITOR PATIENT.
--- NOTE | 2019-04-07 19:30 | NUR ---
PT ENDORSED TO RESEARCH PROGRAM INTERN IN STABLE CONDITION.
[2019-04-07 20:25] VITALS: BP 119/61
[2019-04-07] MEDS: ATORVASTATIN 20 MG TAB PO SCH (21:01)
--- NOTE | 2019-04-07 21:02 | NUR ---
PATIENT HAD A BLOOD GLUCOSE RESULT OF 109. NO INSULIN COVERAGE GIVEN AT THIS TIME. WILL CONTINUE TO MONITOR PATIENT.
--- NOTE | 2019-04-07 22:21 | NUR ---
ROUNDS DONE AT THIS TIME. PATIENT IS LYING IN BED, WATCHING TV. NO SOB OR DISTRESS NOTED. WILL CONTINUE TO MONITOR PATIENT.
--- NOTE | 2019-04-08 00:30 | NUR ---
VITALS TAKEN AT THIS TIME. VISIBLE CHEST RISE AND FALL NOTED. WILL CONTINUE TO MONITOR PATIENT.
[2019-04-08 00:31] VITALS: BP 143/74
[2019-04-08] MEDS: NACL 0.9% 1,000 ML IV SCH ×2 (00:41→02:32)
--- NOTE | 2019-04-08 01:52 | NUR ---
ROUNDS DONE AT THIS TIME. VISIBLE CHEST RISE AND FALL NOTED. CALL LIGHT WITHIN PATIENT REACH. WILL CONTINUE TO MONITOR PATIENT.
[2019-04-08 04:30] VITALS: BP 138/61
--- NOTE | 2019-04-08 04:30 | NUR ---
VITALS DONE AT THIS TIME. VISIBLE CHEST RISE AND FALL NOTED. CALL LIGHT WITHIN PATIENT REACH. WILL CONTINUE TO MONITOR PATIENT.
--- NOTE | 2019-04-08 06:52 | NUR ---
PATIENT HAD A BLOOD GLUCOSE RESULT OF 119. NO INSULIN COVERAGE GIVEN AT THIS TIME.
--- NOTE | 2019-04-08 06:52 | NUR ---
PATIENT IN STABLE CONDITION. CALL LIGHT PLACED WITHIN PATIENT REACH. WILL ENDORSE TO AM SHIFT NURSE FOR CONTINUITY OF CARE.
--- NOTE | 2019-04-08 07:10 | NUR ---
RECEIVED BEDSIDE REPORT FROM INTERACTIVE ART DIRECTOR NURSE MARIYA FOR CONTINUITY OF CARE. PT IS AWAKE AND RESTING ON BED AT THIS TIME. PT SPEAKS [place] AND ABLE TO UNDERSTAND SOME [place], AND ABLE TO MAKE NEEDS KNOWN. RESPIRATION EVEN AND UNLABORED ON RA. DENIED PAIN, SOB, AND DIZZINESS. NO SIGNS OF DISTRESS NOTED. IV ON LAC #20G, CLEAN AND INTACT, INFUSING PER MD ORDER. SKIN CLEAN AND DRY. PT IS CONTINENT AND ABLE TO AMBULATE WITH ASSIST.TELE MONITOR ATTACHED. SAFETY MEASURES IN PLACE. FALL RISK PROTOCOL IN PLACE AND SIGN POSTED. BED IN LOW POSITION AND CALL LIGHT WITHIN REACH. INSTRUCTED PT TO USE THE CALL LIGHT FOR ANY ASSISTANCE AND PT WAS AWARE.
[2019-04-08 07:12] LABS: BASOPHILS # (AUTO) 0.1 K/uL (0.00-0.22); BASOPHILS % (AUTO) 0.8 % (0.0-2.0); EOSINOPHILS # (AUTO) 0.2 K/uL (0-0.4); EOSINOPHILS % (AUTO) 3.8 % (0.0-4.0); HEMATOCRIT 43.2 % (36-52); HEMOGLOBIN 14.2 g/dL (12.0-18.0); LYMPHOCYTES # (AUTO) 1.6 K/uL (2.0-11.5); LYMPHOCYTES % (AUTO) 24.3 % (20.5-51.1); MEAN CORPUSCULAR HEMOGLOBIN 31 pg (27-31); MEAN CORPUSCULAR HGB CONC 33 g/dL (33-37); MEAN CORPUSCULAR VOLUME 93.8 fL (80-94); MONOCYTES # (AUTO) 0.5 K/uL (0.8-1.0); MONOCYTES % (AUTO) 7.6 % (1.7-9.3); NEUTROPHILS # (AUTO) 4.1 K/uL (1.8-7.7); NEUTROPHILS % (AUTO) 63.5 % (42.2-75.2); PLATELET COUNT (AUTO) 228 K/uL (140-450); RED BLOOD CELL COUNT(AUTO) 4.61 MIL/uL (4.20-6.10); RED CELL DISTRIBUTION WIDTH 13.7 % (11.6-13.7); WHITE BLOOD COUNT (AUTO) 6.5 K/uL (4.8-10.8)
[2019-04-08 07:20] LABS: ANION GAP 10.7 (8-16); CARBON DIOXIDE 27.9 mmol/L (21-32); CHLORIDE 107 mmol/L (98-107); CREATININE 0.7 mg/dL (0.6-1.3); GLUCOSE 94 mg/dL (74-106); POTASSIUM 3.6 mmol/L (3.5-5.1); SODIUM SERUM 142 mmol/L (136-145); UREA NITROGEN, BLOOD 10 mg/dL (7-18)
[2019-04-08 07:24] LABS: PHOSPHORUS 3.5 mg/dL (2.5-4.9)
--- NOTE | 2019-04-08 07:35 | NUR ---
ASSISTED PT TO USE THE BATHROOM FOR BM AND BACK ON BED SAFELY. POSITIONED PT ON BED COMFORTABLY.PT'S GAIT IS UNSTEADY AND SLIGHTLY LIMITED DUE TO WITH IV PUMP. NO SIGNS OF DISTRESS NOTED. TELE MONITOR ATTACHED. SAFETY MEASURES IN PLACE.
[2019-04-08] MEDS: BLOOD GLUCOSE MONITORING 1 DEV DEV FS SCH ×4 (07:43→21:09)
[2019-04-08 08:00] VITALS: BP 139/65
--- NOTE | 2019-04-08 08:05 | NUR ---
PATIENT HAS BEEN SCREENED AND CATEGORIZED MODERATE NUTRITION RISK. PATIENT WILL BE SEEN WITHIN 3-5 DAYS OF ADMISSION. 04/09/19 - 04/11/19 OMID GREY MBA,RD
[2019-04-08] MEDS: LISINOPRIL 10 MG TAB PO SCH (09:45)
[2019-04-08] MEDS: LORATADINE 10 MG TAB PO SCH (09:45)
[2019-04-08] MEDS: LACTOBACILLUS RHAMNOSUS GG 1 EACH CAP PO SCH (09:45)
[2019-04-08] MEDS: TAMSULOSIN 0.4 MG CAP PO SCH (09:45)
[2019-04-08] MEDS: ESCITALOPRAM 20 MG TAB PO SCH (09:45)
[2019-04-08] MEDS: ATORVASTATIN 20 MG TAB PO SCH (09:48)
[2019-04-08] MEDS: FLUTICASONE NASAL 50 MCG/ACTUATION 16 GM BTL NS SCH (09:48)
--- NOTE | 2019-04-08 09:48 | NUR ---
CHECKED BP PRIOR TO MEDS ADMINISTRATION, BP 139/65 PULSE 69. ADMINISTERED SCHEDULED MEDS PER MD ORDER, MEDS ED PROVIDED AND PT SAID OK. PT TOLERATED PO MEDS WELL. DENIED PAIN, SOB, AND DIZZINESS. PT AWAKE AND WATCHING SOCCER ON BED AT THIS TIME. NO SIGNS OF DISTRESS NOTED. TELE MONITOR ATTACHED. SAFETY MEASURES IN PLACE. BED IN LOW POSITION AND CALL LIGHT WITHIN REACH. INSTRUCTED PT TO USE THE CALL LIGHT FOR ANY ASSISTANCE AND PT SAID OK.
--- NOTE | 2019-04-08 11:15 | NUR ---
PT IS RESTING ON BED AT THIS TIME. RESPIRATION EVEN AND UNLABORED ON RA. NO SIGNS OF DISTRESS NOTED. TELE MONITOR ATTACHED. SAFETY MEASURES IN PLACE.
[2019-04-08 12:00] VITALS: BP 128/58
--- NOTE | 2019-04-08 13:20 | NUR ---
PT AWAKE AND TALKING ON HIS PHONE. NO SIGNS OF DISTRESS NOTED. TELE MONITOR ATTACHED. SAFETY MEASURES IN PLACE.
--- NOTE | 2019-04-08 15:42 | NUR ---
PT IS AWAKE AND RESTING ON BED. RESPIRATION EVEN AND UNLABORED ON RA. NO SIGNS OF DISTRESS NOTED. TELE MONITOR ATTACHED. SAFETY MEASURES IN PLACE. BED ALARM ACTIVATED.
[2019-04-08 16:00] VITALS: BP 145/67
--- NOTE | 2019-04-08 17:11 | NUR ---
PT IS TALKING TO VISITOR AT BEDSIDE. NO SIGNS OF DISTRESS NOTED. REMOVED TELE MONITOR AND RETURNED TO TELE FARM ASSISTANT. SAFETY MEASURES IN PLACE.
[2019-04-08] MEDS: AZITHROMYCIN 250 MG TAB PO SCH (18:13)
[2019-04-08] MEDS: INSULIN LISPRO SLIDING SCALE 100 UNITS/ML VIAL SUBQ PRN ×2 (18:13→21:07)
--- NOTE | 2019-04-08 18:13 | NUR ---
PT RECEIVED HIS LUNCH TRAY. ADMINISTERED 2 UNIT OF HUMALOG FOR BLOOD GLUCOSE 151 AND AZITHROMYCIN, MEDS ED PROVIDED TO PT AND FAMILY AT BEDSIDE. ALL VERBALIZED UNDERSTANDING. NO SIGNS OF DISTRESS NOTED. TELE MONITOR ATTACHED. SAFETY MEASURES IN PLACE.
--- NOTE | 2019-04-08 19:27 | NUR ---
ENDORSED PT AT BEDSIDE TO BUSINESS PROCESS COORDINATOR NURSE MARIYA FOR CONTINUITY OF CARE. PT AWAKE AND WATCHING TV ON BED. NO SIGNS OF DISTRESS NOTED. TELE MONITOR ATTACHED. SAFETY MEASURES IN PLACE.
--- NOTE | 2019-04-08 19:30 | NUR ---
RECEIVED BEDSIDE REPORT FROM AM SHIFT NURSE ANA. PATIENT IS LYING IN BED, AWAKE AND ALERT, WATCHING TV. NO SOB OR DISTRESS NOTED. ON ROOM AIR. IV ACCESS ON LEFT AC 22 GAUGE, PATENT, INTACT AND INFUSING WELL. PATIENT IS AMBULATORY WITH ASSIST. BED IN LOW, SAFETY MEASURES IN PLACE. INITIAL ASSESSMENT DONE. CALL LIGHT PLACED WITHIN PATIENT REACH. BOARD UPDATED. WILL CONTINUE TO MONITOR PATIENT.
[2019-04-08 20:30] VITALS: BP 127/68
--- NOTE | 2019-04-08 20:45 | NUR ---
BREATH SOUNDS ARE CLEAR NO HHNTX NEEDED
--- NOTE | 2019-04-08 21:09 | NUR ---
PATIENT HAD A BLOOD GLUCOSE OF 174 WITH 2 UNITS OF REGULAR HUMALOG INSULIN GIVEN.
--- NOTE | 2019-04-08 22:30 | NUR ---
ROUNDS DONE. PATIENT RESTING COMFORTABLY IN BED WITH EYES CLOSED. VISIBLE CHEST RISE AND FALL NOTED. WILL CONTINUE TO MONITOR PATIENT.
--- NOTE | 2019-04-09 00:20 | NUR ---
VITALS TAKEN AT THIS TIME. NO SOB OR DISTRESS NOTED. WILL CONTINUE TO MONITOR PATIENT.
[2019-04-09 00:30] VITALS: BP 146/68
--- NOTE | 2019-04-09 00:30 | NUR ---
ASSISTED PATIENT TO THE RESTROOM AT THIS TIME. NO DISTRESS NOTED.
--- NOTE | 2019-04-09 00:37 | NUR ---
PATIENT ASSISTED BACK TO BED. CALL LIGHT PLACED WITHIN PATIENT REACH. WILL CONTINUE TO MONITOR PATIENT.
--- NOTE | 2019-04-09 03:29 | NUR ---
ROUNDS DONE. VISIBLE CHEST RISE AND FALL NOTED. CALL LIGHT PLACED WITHIN PATIENT REACH. WILL CONTINUE TO MONITOR PATIENT.
[2019-04-09] MEDS: BLOOD GLUCOSE MONITORING 1 DEV DEV FS SCH ×4 (06:13→21:00)
[2019-04-09 06:28] LABS: BASOPHILS % (AUTO) 0.5 % (0.0-2.0); EOSINOPHILS # (AUTO) 0.3 K/uL (0-0.4); EOSINOPHILS % (AUTO) 3.9 % (0.0-4.0); HEMATOCRIT 43.2 % (36-52); HEMOGLOBIN 14.5 g/dL (12.0-18.0); LYMPHOCYTES # (AUTO) 1.7 K/uL (2.0-11.5); LYMPHOCYTES % (AUTO) 22.9 % (20.5-51.1); MEAN CORPUSCULAR HEMOGLOBIN 31 pg (27-31); MEAN CORPUSCULAR HGB CONC 34 g/dL (33-37); MEAN CORPUSCULAR VOLUME 93.6 fL (80-94); MONOCYTES # (AUTO) 0.6 K/uL (0.8-1.0); MONOCYTES % (AUTO) 7.8 % (1.7-9.3); NEUTROPHILS # (AUTO) 4.9 K/uL (1.8-7.7); NEUTROPHILS % (AUTO) 64.9 % (42.2-75.2); PLATELET COUNT (AUTO) 267 K/uL (140-450); RED BLOOD CELL COUNT(AUTO) 4.62 MIL/uL (4.20-6.10); RED CELL DISTRIBUTION WIDTH 13.5 % (11.6-13.7); WHITE BLOOD COUNT (AUTO) 7.6 K/uL (4.8-10.8)
--- NOTE | 2019-04-09 06:31 | NUR ---
PATIENT NOTED WITH BLOOD GLUCOSE OF 92. NO INSULIN COVERAGE NEEDED. WILL CONTINUE TO MONITOR PATIENT.
--- NOTE | 2019-04-09 06:31 | NUR ---
PATIENT IN STABLE CONDITION. CALL LIGHT PLACED WITHIN PATIENT REACH. WILL ENDORSE TO AM SHIFT NURSE FOR CONTINUITY OF CARE.
[2019-04-09 06:53] LABS: MAGNESIUM 2.1 mg/dL (1.8-2.4); PHOSPHORUS 3.6 mg/dL (2.5-4.9)
--- NOTE | 2019-04-09 07:20 | NUR ---
RECEIVED BEDSIDE REPORT FROM RESOURCE DIRECTOR NURSE. PATIENT IS LYING IN BED, AWAKE AND ALERT, WATCHING TV. FAMILY BY BEDSIDE. NO SOB OR DISTRESS NOTED. ON ROOM AIR. IV ACCESS ON LEFT AC 22 GAUGE, PATENT AND INTACT WITH NS AT 60ML/HR. PATIENT IS AMBULATORY WITH ASSIST. BED IN LOW, SAFETY MEASURES IN PLACE. CALL LIGHT WITHIN PATIENT REACH. BOARD UPDATED. WILL CONTINUE TO MONITOR PATIENT.
[2019-04-09 07:28] LABS: ANION GAP 12.1 (8-16); CARBON DIOXIDE 26.7 mmol/L (21-32); CHLORIDE 106 mmol/L (98-107); CREATININE 0.7 mg/dL (0.6-1.3); GLUCOSE 93 mg/dL (74-106); POTASSIUM 3.8 mmol/L (3.5-5.1); SODIUM SERUM 141 mmol/L (136-145); UREA NITROGEN, BLOOD 10 mg/dL (7-18)
[2019-04-09 08:00] VITALS: BP 129/61
[2019-04-09] MEDS: ATORVASTATIN 20 MG TAB PO SCH (09:12)
[2019-04-09] MEDS: ESCITALOPRAM 20 MG TAB PO SCH (09:13)
[2019-04-09] MEDS: TAMSULOSIN 0.4 MG CAP PO SCH (09:14)
[2019-04-09] MEDS: LISINOPRIL 10 MG TAB PO SCH (09:15)
[2019-04-09] MEDS: LACTOBACILLUS RHAMNOSUS GG 1 EACH CAP PO SCH (09:16)
[2019-04-09] MEDS: LORATADINE 10 MG TAB PO SCH (09:16)
--- NOTE | 2019-04-09 09:16 | NUR ---
PT WAS GIVEN THE SCHEDULED AM MEDICATIONS VIA IV AND ORAL, TOLERATED AND NO SIGN OF DISTRESS NOTED, PARAMETER CHECKED, BP IS 129/61, PULSE IS 73. WILL MONITOR PT.
[2019-04-09] MEDS: NACL 0.9% 1,000 ML IV SCH (09:18)
[2019-04-09] MEDS: FLUTICASONE NASAL 50 MCG/ACTUATION 16 GM BTL NS SCH (09:26)
--- NOTE | 2019-04-09 11:42 | NUR ---
PT'S BLOOD GLUCOSE WAS CHECKED AND RESULT IS 126 AND NO INSULIN COVERAGE NEEDED. WILL MONITOR PT
[2019-04-09 16:00] VITALS: BP 121/57
--- NOTE | 2019-04-09 16:30 | NUR ---
PT. BLOOD GLUCOSE WAS CHECKED AND RESULT IS 106. NO INSULIN COVERAGE NEEDED. CALL LIGHT WITHIN REACH. WILL CONTINUE TO MONITOR PT.
[2019-04-09] MEDS: AZITHROMYCIN 250 MG TAB PO SCH (18:30)
--- NOTE | 2019-04-09 18:30 | NUR ---
PT. RECEIVED AFTERNOON MEDICATION. PT. TOLERATED WELL AND NOT IN DISTRESS. CALL LIGHT WITHIN REACH. WILL CONTINUE TO MONITOR.
--- NOTE | 2019-04-09 19:20 | NUR ---
ENDORSED PT AT BEDSIDE TO LEARNING DISABLED TEACHER NURSE FOR CONTINUITY OF CARE. PT AWAKE AND IN BED. NO SIGNS OF DISTRESS NOTED. PT. IS STABLE. SAFETY MEASURES IN PLACE.
--- NOTE | 2019-04-09 19:21 | NUR ---
RECD. RESTING IN BED, AWAKE, A/OX2. RESPIRATION EVEN AND UNLABORED. IV OF NS AT 60 ML/HR INFUSING, RIGHT FOREARM G22. SAFETY MEASURES ENFORCED. BED IN THE LOWEST POSITION, BED ON ALARM. DENIES PRODUCTIVE COUGHING. PLAN OF CARE DISCUSSED. NEEDS REINFORCEMENT. DENIES PAIN 0/10.
--- NOTE | 2019-04-09 20:00 | NUR ---
Patient's Plan of Care was discussed and reviewed with ORTHOPEDIC DESIGNER: DANNY DUARTE
--- NOTE | 2019-04-09 21:00 | NUR ---
SNACK FOR THE NIGHT GIVEN, ATE 100%.
--- NOTE | 2019-04-09 21:10 | NUR ---
ROOM AIR SAT 96% BS CLEAR NO HHNTX NEEDED
--- NOTE | 2019-04-09 23:05 | NUR ---
INFORMED PT FOR TRANSFER TO . 112-A. AGREED, COOPERATIVE.
[2019-04-10] VITALS: BP 128/66
[2019-04-10] MEDS: NACL 0.9% 1,000 ML IV SCH ×2 (00:57→02:41)
--- NOTE | 2019-04-10 01:05 | NUR ---
STILL AWAKE, WATCHING TV. OFFERED SLEEPING PILL BUT REFUSED.
--- NOTE | 2019-04-10 03:00 | NUR ---
SLEEPING COMFORTABLY IN BED.
--- NOTE | 2019-04-10 05:00 | NUR ---
COMFORTABLE IN BED. NO COUGHING NOTED.
[2019-04-10] MEDS: BLOOD GLUCOSE MONITORING 1 DEV DEV FS SCH ×2 (05:59→11:30)
--- NOTE | 2019-04-10 07:10 | NUR ---
RECEIVED PT FROM BROADCAST OPERATIONS DIRECTOR NURSEDANNY PT IS ASLEEP AND LYING ON THE BED, SIDE RAILS ARE UP AND CALL LIGHT WITHIN REACH, PT HAS AN IV LINE ON THE RT FA G. 22 WITH NS 60ML/HR, ON ROOM AIR, AND VISIBLE CHEST RISE NOTED AND NO SIGN OF DISTRESS, WILL CONTINUE TO MONITOR PT.
[2019-04-10 08:00] VITALS: BP 149/69
[2019-04-10] MEDS: LORATADINE 10 MG TAB PO SCH (09:06)
[2019-04-10] MEDS: FLUTICASONE NASAL 50 MCG/ACTUATION 16 GM BTL NS SCH (09:06)
[2019-04-10] MEDS: TAMSULOSIN 0.4 MG CAP PO SCH (09:06)
[2019-04-10] MEDS: LISINOPRIL 10 MG TAB PO SCH (09:06)
[2019-04-10] MEDS: ATORVASTATIN 20 MG TAB PO SCH (09:06)
[2019-04-10] MEDS: LACTOBACILLUS RHAMNOSUS GG 1 EACH CAP PO SCH (09:06)
[2019-04-10] MEDS: ESCITALOPRAM 20 MG TAB PO SCH (09:06)
--- NOTE | 2019-04-10 09:06 | NUR ---
PT WAS GIVEN THE SCHEDULED AM MEDICATION ORALLY ADN VIA PIGGYBACK AND TOLERATED, WILL MONITOR TP.
--- NOTE | 2019-04-10 09:15 | NUR ---
PT WAS ASSISTED TO THE BATHROOM AND MADE A BOWEL MOVEMENT AND ASSISTED BACK TO BED.
[2019-04-10 10:53] LABS: ANION GAP 9.5 (8-16); BASOPHILS % (AUTO) 0.6 % (0.0-2.0); CARBON DIOXIDE 29.8 mmol/L (21-32); CHLORIDE 106 mmol/L (98-107); CREATININE 0.7 mg/dL (0.6-1.3); EOSINOPHILS # (AUTO) 0.3 K/uL (0-0.4); EOSINOPHILS % (AUTO) 4.4 % (0.0-4.0); GLUCOSE 94 mg/dL (74-106); HEMATOCRIT 45.2 % (36-52); HEMOGLOBIN 14.9 g/dL (12.0-18.0); LYMPHOCYTES # (AUTO) 1.7 K/uL (2.0-11.5); LYMPHOCYTES % (AUTO) 24.6 % (20.5-51.1); MEAN CORPUSCULAR HEMOGLOBIN 31 pg (27-31); MEAN CORPUSCULAR HGB CONC 33 g/dL (33-37); MEAN CORPUSCULAR VOLUME 94.2 fL (80-94); MONOCYTES # (AUTO) 0.6 K/uL (0.8-1.0); MONOCYTES % (AUTO) 9.3 % (1.7-9.3); NEUTROPHILS # (AUTO) 4.2 K/uL (1.8-7.7); NEUTROPHILS % (AUTO) 61.1 % (42.2-75.2); PLATELET COUNT (AUTO) 239 K/uL (140-450); POTASSIUM 4.3 mmol/L (3.5-5.1); RED CELL DISTRIBUTION WIDTH 13.8 % (11.6-13.7); SODIUM SERUM 141 mmol/L (136-145); UREA NITROGEN, BLOOD 10 mg/dL (7-18); WHITE BLOOD COUNT (AUTO) 6.8 K/uL (4.8-10.8)
[2019-04-10 10:54] LABS: MAGNESIUM 2.2 mg/dL (1.8-2.4); PHOSPHORUS 3.6 mg/dL (2.5-4.9)
[2019-04-10] MEDS ORDERED: AMOX1TAB8 PO (11:26)
[2019-04-10] MEDS ORDERED: BENZ-196 PO (11:26)
[2019-04-10] MEDS ORDERED: INUL1CTB PO (11:26)
--- NOTE | 2019-04-10 12:50 | NUR ---
BLOOD GLUCOSE CHEK DONE TO PT NOW AND RESULT IS 114, WILL MONITOR PT.
--- NOTE | 2019-04-10 13:25 | NUR ---
Late entry. Confirmed with RN that Rocephin IV completed at 1615
[2019-04-10] MEDS ORDERED: INFLUENZA VACCINE QUAD 0.5 ML SYR IMVAC PRN (13:35)
[2019-04-10] MEDS ORDERED: PNEUMOCOCCAL VACCINE 23 MCG/0.5 ML VIAL IMVAC SCH (13:35)
--- NOTE | 2019-04-10 14:11 | NUR ---
PT WAS GIVEN PNEUMONIA VACCINATION NOW ON THE LEFT DELTOID.
--- NOTE | 2019-04-10 14:58 | NUR ---
PT WAS GIVEN FLU VACCINE NOW ON THE RT DELTOID.
--- NOTE | 2019-04-10 15:14 | NUR ---
DISCHARGED PT TO HOME, IV LINE AND ARM BAND REMOVED, DISCHARGED INSTRUCTIONS GIVEN TO PT VIA PATTERN CHANGER #[id number] AND PT VERBALIZED UNDERSTANDING, PT IS STABLE AT THIS TIME DISCHARGED ACCOMPANIED BY AND NEIGHBOR.
--- NOTE | 2019-04-13 13:30 | NUR ---
Pasteuriser Operator Note: I was informed by staff at [facility], patient is requesting hospitalization verification letter. I met with patient, provided him with letter.
== END 2019-04-10 15:14 | disposition home or self-care (01) | DRG 178 ==
LOC: MED 12:10 → MMU 15:22 → MTU 04-09 23:00
PROVIDERS: ADMIT General Practice; ATTEND General Practice
PROC: 3E0234Z Introduction of Serum, Toxoid and Vaccine into Muscle, Percutaneous Approach (ICD-10-PCS; principal; 2019-04-10)
PROC: 3E02340 Introduction of Influenza Vaccine into Muscle, Percutaneous Approach (ICD-10-PCS; 2019-04-10)
DX: J69.0 Pneumonitis due to inhalation of food and vomit (principal); E44.1 Mild protein-calorie malnutrition; N39.0 Urinary tract infection, site not specified; J98.11 Atelectasis; E11.9 Type 2 diabetes mellitus without complications; F03.90 Unspecified dementia, unspecified severity, without behavioral disturbance, psychotic disturbance, mood disturbance, and anxiety; I10 Essential (primary) hypertension; F32.9 Major depressive disorder, single episode, unspecified; N40.0 Benign prostatic hyperplasia without lower urinary tract symptoms; Z68.28 Body mass index [BMI] 28.0-28.9, adult; Z23 Encounter for immunization
CPT/HCPCS: 36415; 71045; 80048; 80053; 81001; 82948; 83690; 83735; 83880; 84100; 85025; 85610; 85730; 87040; 87081; 87086; 87804; 90732; 96365; 99291; J0696; J1815; J7030; J7060; Q0092

== ENCOUNTER 2019-09-03 14:05 | Emergency (ER) | payer MEDICARE, OTHER ==
[~2019-09-03] VITALS: Ht 157.5 cm; Wt 60.3 kg
[~2019-09-03 14:05] MED LIST changes: +AMOX1TAB8 PO; +BENZ-196 PO; +INUL1CTB PO
[2019-09-03 14:23] VITALS: BP 135/72
--- NOTE | 2019-09-03 14:30 | NUR ---
brought in by ems from home s/p mechanical fall on wet floor---when asked about pain , pt states no pain but i landed on my left side----ambulatory with steady gait
--- NOTE | 2019-09-03 16:25 | NUR ---
PT TO CT VIA WC
[2019-09-03 17:39] VITALS: BP 127/70
== END 2019-09-03 17:39 | disposition home or self-care (01) ==
LOC: MED 14:05
DX: S20.20XA Contusion of thorax, unspecified, initial encounter (principal); E11.9 Type 2 diabetes mellitus without complications; I10 Essential (primary) hypertension; F03.90 Unspecified dementia, unspecified severity, without behavioral disturbance, psychotic disturbance, mood disturbance, and anxiety; Z85.038 Personal history of other malignant neoplasm of large intestine; Z79.899 Other long term (current) drug therapy; W01.0XXA Fall on same level from slipping, tripping and stumbling without subsequent striking against object, initial encounter; Y93.89 Activity, other specified; Y92.89 Other specified places as the place of occurrence of the external cause; Y99.8 Other external cause status
CPT/HCPCS: 99285

== ENCOUNTER 2021-12-29 18:28 | Emergency (ER) | payer MEDICARE, OTHER ==
[~2021-12-29] VITALS: Ht 165.1 cm; Wt 63.5 kg
[~2021-12-29 18:28] MED LIST changes: +LISI-486 PO; -LISI10TA11 PO
--- NOTE | 2021-12-29 18:33 | NUR ---
BIBA TO ROOM 7
[2021-12-29 18:40] VITALS: BP 152/84
--- NOTE | 2021-12-29 18:50 | NUR ---
86YO MALE PT BIBA HOME C/O GROIN RASH. PT STATES RASH INITIALLY STARTED 3-4MONTHS AGO. C/O ACHING PAIN ON MOVEMENT OR TOUCH. PRESENTS WITH REDDENED SKIN JHON IN GROIN W/ MILD DRAINAGE NOTED FROM SKIN TEAR. STATES APPLYING ANTIBACTERIAL SPRAY W/ MILD RELIEF. DENIES N/V/D, CHEST PAIN , SOB, FEVR OR CHILLS . PT AAOX3 TO NAME PLACE AND TIME- UNSURE WHY HES HERE. ON AVIATION MECHANIC. BED RAILS UPX2. MALAYSIAN SPEAKING HX:DENIES NKA
--- NOTE | 2021-12-29 19:09 | NUR ---
MD JACK AT BEDSIDE
--- NOTE | 2021-12-29 19:09 | NUR ---
86/M BIBA FROM HOME. PER EMS PATIENTS CALLED 911 STATING PATIENT HAS ON GOING "RED RAW" RASH AROUND GROIN. EMS STATING PATIENTS REPORTS PATIENT WITH EPISODES OF HEMATURIA, PATIENT DENIES URINARY SYMPTOMS. UPON ARRIVAL PATIENT DENIES PAIN, DENIES CP, SOB, FEVERS.
--- NOTE | 2021-12-29 19:30 | NUR ---
REPORT GIVEN TO JANENE HOLBROOK. TRANSFER OF CARE AT THIS TIME
[2021-12-29] MEDS ORDERED: NACL 0.9% 1,000 ML IV ONE (19:50)
[2021-12-29 20:36] LABS: BASOPHILS % (AUTO) 0.7 % (0.0-2.0); EOSINOPHILS # (AUTO) 0.2 K/uL (0-0.4); EOSINOPHILS % (AUTO) 3.9 % (0.0-4.0); HEMATOCRIT 42.1 % (36-52); HEMOGLOBIN 14.4 g/dL (12.0-18.0); LYMPHOCYTES # (AUTO) 0.9 K/uL (2.0-11.5); LYMPHOCYTES % (AUTO) 15.6 % (20.5-51.1); MEAN CORPUSCULAR HEMOGLOBIN 32 pg (27-31); MEAN CORPUSCULAR HGB CONC 34 g/dL (33-37); MEAN CORPUSCULAR VOLUME 93.3 fL (80-94); MONOCYTES # (AUTO) 0.6 K/uL (0.8-1.0); MONOCYTES % (AUTO) 10.6 % (1.7-9.3); NEUTROPHILS # (AUTO) 4.1 K/uL (1.8-7.7); NEUTROPHILS % (AUTO) 69.2 % (42.2-75.2); PLATELET COUNT (AUTO) 210 K/uL (140-450); RED BLOOD CELL COUNT(AUTO) 4.52 MIL/uL (4.20-6.10); RED CELL DISTRIBUTION WIDTH 14.6 % (11.6-13.7); WHITE BLOOD COUNT (AUTO) 5.9 K/uL (4.8-10.8)
--- NOTE | 2021-12-29 20:57 | NUR ---
86YR OLD MALE C/O RASH TO GROIN. PT STATES HAVING RASH FOR 3-4 MONTHS. DRAINAGE FROM AREA REDDNESS AND SWELLING . PAIN LEVEL 5/10 ACHE PAIN. PT IS A&OX3. THAI SPEAKING ONLY. RESP EVEN AND UNLABORED. HOB ELEVATED BED AT LOWEST POSITION NKDA DENIES HX
[2021-12-29 21:11] LABS: ALBUMIN 3.1 g/dL (3.4-5.0); ANION GAP 11.4 (8-16); ASPARTATE AMINOTRANSFERASE 33 U/L (15-37); CARBON DIOXIDE 29.2 mmol/L (21-32); CHLORIDE 104 mmol/L (98-107); CREATININE 0.7 mg/dL (0.6-1.3); GLUCOSE 95 mg/dL (74-106); LIPASE 145 U/L (73-393); POTASSIUM 3.6 mmol/L (3.5-5.1); SODIUM SERUM 141 mmol/L (136-145); TOTAL BILIRUBIN 1.3 mg/dL (0.0-1.0); UREA NITROGEN, BLOOD 13 mg/dL (7-18)
--- NOTE | 2021-12-29 21:50 | NUR ---
PT TAKEN TO CT VIA [facility]
[2021-12-29 21:54] LABS: APPEARANCE,URINE CLEAR (CLEAR); BILIRUBIN,URINE NEGATIVE (NEGATIVE); BLOOD, URINE TRACE-I (NEGATIVE); COLOR,URINE YELLOW (YELLOW); LEUKOCYTE ESTERASE ,URINE NEGATIVE (NEGATIVE); NITRITE, URINE NEGATIVE (NEGATIVE); PH,URINE 7.5 (5.0-9.0); UGLUCOSE NEGATIVE (NEGATIVE)
[2021-12-29] MEDS ORDERED: NYSTATIN POW 100 MU/GM 15 GM BTL TP STA (21:59)
[2021-12-29] MEDS ORDERED: ACETAMINOPHEN 325 MG TAB PO ONE (22:00)
[2021-12-29] MEDS ORDERED: CEPH-588 PO (22:37)
[2021-12-29] MEDS ORDERED: NYST-71 TP (22:37)
--- NOTE | 2021-12-30 00:15 | NUR ---
PT WILL BE DC TO HOME WITH ABX. DAUGHTER WILL VP CARDIOVASCULAR PT
[2021-12-30 00:25] VITALS: BP 154/84
--- NOTE | 2021-12-30 00:25 | NUR ---
Patient discharged with v/s stable. Written and verbal after care instructions given and explained. Patient alert, oriented and verbalized understanding of instructions. Ambulatory with steady gait. All questions addressed prior to discharge. ID band removed. Patient advised to follow up with PMD. Rx of KEFLEX NYSTATIN given. Patient educated on indication of medication including possible reaction and side effects. Opportunity to ask questions provided and answered.
--- NOTE | 2021-12-30 00:39 | NUR ---
The patient's care was reviewed and supervised by Pam Harris RN.
== END 2021-12-30 00:25 | disposition home or self-care (01) ==
LOC: MED 18:28
DX: B35.6 Tinea cruris (principal); Z20.822 Contact with and (suspected) exposure to COVID-19; L03.314 Cellulitis of groin; I10 Essential (primary) hypertension; E11.9 Type 2 diabetes mellitus without complications; Z79.4 Long term (current) use of insulin; Z79.899 Other long term (current) drug therapy
CPT/HCPCS: 36415; 72193; 80053; 81001; 83605; 83690; 85025; 87040; 87086; 87426; 96360; 99285; J7030; Q9967

== ENCOUNTER 2023-05-04 00:16 | Inpatient (IN) | payer MEDICARE, OTHER ==
[2023-05-04] VITALS (17 sets, daily range): BP systolic 60–149; BP diastolic 44–85; PULSE 69–149; RESP 15–24; TEMP 96.9–98; O2SAT 93–100
[~2023-05-04] VITALS: Ht 172.7 cm; Wt 64.0 kg
[~2023-05-04 00:16] MED LIST changes: +CEPH-588 PO; +NYST-71 TP
[2023-05-04 02:03] LABS: APPEARANCE,URINE CLEAR (CLEAR); BILIRUBIN,URINE NEGATIVE (NEGATIVE); BLOOD, URINE TRACE-I (NEGATIVE); COLOR,URINE YELLOW (YELLOW); LEUKOCYTE ESTERASE ,URINE NEGATIVE (NEGATIVE); NITRITE, URINE NEGATIVE (NEGATIVE); PH,URINE 7.5 (5.0-9.0); PROTEIN,URINE NEGATIVE (NEGATIVE); UGLUCOSE NEGATIVE (NEGATIVE); UROBILINOGEN,URINE 0.2 EU/dL (0.2 - 1)
[2023-05-04 02:06] LABS: BASOPHILS # (AUTO) 0.1 K/uL (0.00-0.22); BASOPHILS % (AUTO) 0.7 % (0.0-2.0); EOSINOPHILS # (AUTO) 0.2 K/uL (0-0.4); EOSINOPHILS % (AUTO) 2.9 % (0.0-4.0); HEMATOCRIT 43.8 % (36-52); HEMOGLOBIN 14.8 g/dL (12.0-18.0); LYMPHOCYTES # (AUTO) 1.2 K/uL (2.0-11.5); LYMPHOCYTES % (AUTO) 16.1 % (20.5-51.1); MEAN CORPUSCULAR HEMOGLOBIN 32 pg (27-31); MEAN CORPUSCULAR HGB CONC 34 g/dL (33-37); MEAN CORPUSCULAR VOLUME 94.9 fL (80-94); MONOCYTES # (AUTO) 0.9 K/uL (0.8-1.0); MONOCYTES % (AUTO) 11.7 % (1.7-9.3); NEUTROPHILS # (AUTO) 5.3 K/uL (1.8-7.7); NEUTROPHILS % (AUTO) 68.6 % (42.2-75.2); PLATELET COUNT (AUTO) 232 K/uL (140-450); RED BLOOD CELL COUNT(AUTO) 4.61 MIL/uL (4.20-6.10); RED CELL DISTRIBUTION WIDTH 14.5 % (11.6-13.7); WHITE BLOOD COUNT (AUTO) 7.6 K/uL (4.8-10.8)
[2023-05-04 02:06] LABS: BACTERIA,URINE FEW /HPF (None Seen); MUCUS,URINE 1+ /LPF (None Seen); SQUAMOUS EPITHELIAL CELL,UR 0-3 (FEW) /LPF (0-3 (FEW)); WBC,URINE 0-5 /HPF (0-5)
[2023-05-04 02:20] LABS: ANION GAP 8.1 (8-16); CARBON DIOXIDE 32.8 mmol/L (21-32); CHLORIDE 102 mmol/L (98-107); CREATININE 0.7 mg/dL (0.6-1.3); GLUCOSE 119 mg/dL (74-106); POTASSIUM 3.9 mmol/L (3.5-5.1); SODIUM SERUM 139 mmol/L (136-145); UREA NITROGEN, BLOOD 18 mg/dL (7-18)
[2023-05-04 02:24] LABS: ALANINE AMINOTRANSFERASE 26 U/L (12-78); ALBUMIN 3.3 g/dL (3.4-5.0); ALKALINE PHOSPHATASE 85 U/L (50-136); ASPARTATE AMINOTRANSFERASE 24 U/L (15-37); BILIRUBIN,DIRECT 0.3 mg/dL (0.0-0.3); TOTAL BILIRUBIN 1.3 mg/dL (0.0-1.0); TOTAL PROTEIN, SERUM 8.1 g/dL (6.4-8.2)
[2023-05-04] MEDS ORDERED: cefTRIAXone 1,000 MG VIAL ONE (04:58)
[2023-05-04] MEDS: NACL 0.9% 1,000 ML IV ONE (05:12)
[2023-05-04] MEDS ORDERED: ONDANSETRON 4 MG/2 ML VIAL IVP PRN (06:15)
[2023-05-04] MEDS ORDERED: ACETAMINOPHEN 325 MG TAB PO PRN (06:15)
[2023-05-04] MEDS ORDERED: HYDROcodone/APAP 5/325 MG 1 TAB TAB PO PRN (06:15)
[2023-05-04] MEDS ORDERED: AZITHROMYCIN 500 MG in DEXTROSE 5% 250 ML IV SCH (06:30)
[2023-05-04] MEDS: NACL 0.9% 1,000 ML IV SCH (06:59)
[2023-05-04] MEDS ORDERED: BENZONATATE 100 MG CAPLF PO PRN (08:25)
[2023-05-04] MEDS ORDERED: ESCITALOPRAM 20 MG TAB PO SCH (09:00)
[2023-05-04] MEDS ORDERED: INULIN PO SCH (09:00)
[2023-05-04] MEDS ORDERED: LACTOBACILLUS RHAMNOSUS GG PO SCH (09:00)
[2023-05-04] MEDS ORDERED: hydrALAZINE 20 MG/ML VIAL IVP PRN (10:50)
[2023-05-04] MEDS: ESCITALOPRAM 20 MG TAB ONE (11:05)
[2023-05-04] MEDS: LACTOBACILLUS RHAMNOSUS GG 1 EACH CAP PO SCH (11:09)
[2023-05-04] MEDS: lisinopriL 10 MG TAB PO SCH (11:09)
[2023-05-04] MEDS: TAMSULOSIN 0.4 MG CAP PO SCH (11:10)
[2023-05-04] MEDS: GABAPENTIN 100 MG CAP PO SCH (11:10)
[2023-05-04] MEDS: ENOXAPARIN 40 MG/0.4 ML SYR SUBQ SCH (11:11)
[2023-05-04] MEDS: ESCITALOPRAM 5MG TAB PO SCH (13:01)
[2023-05-04] MEDS: AZITHROMYCIN 500 MG in DEXTROSE 5% 250 ML IV SCH (13:02)
[2023-05-04] MEDS: LEVALBUTEROL 0.63 MG/3 ML NEBU INH SCH (14:47)
[2023-05-04] MEDS: NOREPINEPHRINE 4 MG/4 ML VIAL IV ONE (15:05)
[2023-05-04] MEDS ORDERED: [UNRECOGNIZED DRUG - CODE] PO (17:38)
[2023-05-04] MEDS: AMIODARONE 150 MG in DEXTROSE 5% 100 ML IV SCH (18:37)
[2023-05-04] MEDS: AMIODARONE 450 MG in DEXTROSE 5% 250 ML IV SCH (19:12)
[2023-05-04] MEDS: ATORVASTATIN 20 MG TAB PO SCH (21:35)
[2023-05-04] MEDS: NOREPINEPHRINE 4 MG in DEXTROSE 5% 250 ML IV PRN (23:24)
[2023-05-05] VITALS (33 sets, daily range): BP systolic 95–178; BP diastolic 56–123; PULSE 85–129; RESP 16–24; TEMP 97–97.9; O2SAT 85–100
[2023-05-05] MEDS: LORazepam 2 MG/ML VIAL IVP PRN (01:31)
[2023-05-05 05:09] LABS: BASOPHILS % (AUTO) 0.5 % (0.0-2.0); EOSINOPHILS # (AUTO) 0.1 K/uL (0-0.4); EOSINOPHILS % (AUTO) 1.2 % (0.0-4.0); HEMATOCRIT 40.4 % (36-52); HEMOGLOBIN 13.5 g/dL (12.0-18.0); LYMPHOCYTES # (AUTO) 0.9 K/uL (2.0-11.5); LYMPHOCYTES % (AUTO) 10.4 % (20.5-51.1); MEAN CORPUSCULAR HEMOGLOBIN 32 pg (27-31); MEAN CORPUSCULAR HGB CONC 34 g/dL (33-37); MEAN CORPUSCULAR VOLUME 94.4 fL (80-94); MONOCYTES # (AUTO) 0.8 K/uL (0.8-1.0); MONOCYTES % (AUTO) 9.5 % (1.7-9.3); NEUTROPHILS # (AUTO) 6.9 K/uL (1.8-7.7); NEUTROPHILS % (AUTO) 78.4 % (42.2-75.2); PLATELET COUNT (AUTO) 242 K/uL (140-450); RED BLOOD CELL COUNT(AUTO) 4.28 MIL/uL (4.20-6.10); RED CELL DISTRIBUTION WIDTH 14.2 % (11.6-13.7); WHITE BLOOD COUNT (AUTO) 8.8 K/uL (4.8-10.8)
[2023-05-05 05:15] LABS: ANION GAP 8.8 (8-16); CALCIUM 8.1 mg/dL (8.5-10.1); CARBON DIOXIDE 27.7 mmol/L (21-32); CHLORIDE 103 mmol/L (98-107); CREATININE 0.7 mg/dL (0.6-1.3); GLUCOSE 157 mg/dL (74-106); POTASSIUM 3.5 mmol/L (3.5-5.1); SODIUM SERUM 136 mmol/L (136-145); UREA NITROGEN, BLOOD 13 mg/dL (7-18)
[2023-05-05] MEDS ORDERED: VANCOMYCIN PER PHARMACY MC PRN (08:55)
[2023-05-05] MEDS: FUROSEMIDE 20 MG TAB PO SCH (09:00)
[2023-05-05] MEDS: QUEtiapine FUMARATE 25 MG TAB PO SCH (09:00)
[2023-05-05] MEDS: CYANOCOBALAMIN 100 MCG TAB PO SCH (09:00)
[2023-05-05] MEDS: AZITHROMYCIN 500 MG in DEXTROSE 5% 250 ML IV SCH (09:08)
[2023-05-05] MEDS: amLODIPine 5 MG TAB PO SCH (09:15)
[2023-05-05] MEDS: VANCOMYCIN 1.25GM PREMIX 250 ML IV SCH (10:44)
[2023-05-05] MEDS: SCOPOLAMINE 1.5 MG/72 HR PATCH TD SCH (14:37)
[2023-05-05] MEDS: DIGOXIN 0.25 MG/ML AMP IV SCH ×2 (17:38→22:54)
[2023-05-06] VITALS (29 sets, daily range): BP systolic 80–152; BP diastolic 52–87; PULSE 73–107; RESP 16–22; TEMP 97.3–98.2; O2SAT 96–100
[2023-05-06] MEDS: DIGOXIN 0.25 MG/ML AMP IV SCH (04:41)
[2023-05-06 04:58] LABS: ANION GAP 7.2 (8-16); CALCIUM 8.4 mg/dL (8.5-10.1); CARBON DIOXIDE 31.5 mmol/L (21-32); CHLORIDE 101 mmol/L (98-107); CREATININE 0.6 mg/dL (0.6-1.3); GLUCOSE 106 mg/dL (74-106); POTASSIUM 3.7 mmol/L (3.5-5.1); SODIUM SERUM 136 mmol/L (136-145); UREA NITROGEN, BLOOD 9 mg/dL (7-18)
[2023-05-06 05:00] LABS: BASOPHILS % (AUTO) 0.4 % (0.0-2.0); EOSINOPHILS # (AUTO) 0.2 K/uL (0-0.4); EOSINOPHILS % (AUTO) 2.6 % (0.0-4.0); HEMATOCRIT 39.4 % (36-52); HEMOGLOBIN 13.4 g/dL (12.0-18.0); LYMPHOCYTES # (AUTO) 0.8 K/uL (2.0-11.5); LYMPHOCYTES % (AUTO) 12.8 % (20.5-51.1); MEAN CORPUSCULAR HEMOGLOBIN 32 pg (27-31); MEAN CORPUSCULAR HGB CONC 34 g/dL (33-37); MEAN CORPUSCULAR VOLUME 94.1 fL (80-94); MONOCYTES # (AUTO) 0.8 K/uL (0.8-1.0); MONOCYTES % (AUTO) 12.3 % (1.7-9.3); NEUTROPHILS # (AUTO) 4.6 K/uL (1.8-7.7); NEUTROPHILS % (AUTO) 71.9 % (42.2-75.2); PLATELET COUNT (AUTO) 190 K/uL (140-450); RED BLOOD CELL COUNT(AUTO) 4.19 MIL/uL (4.20-6.10); RED CELL DISTRIBUTION WIDTH 13.8 % (11.6-13.7); WHITE BLOOD COUNT (AUTO) 6.4 K/uL (4.8-10.8)
[2023-05-06] MEDS: AMIODARONE 200 MG TAB PO SCH (09:26)
[2023-05-06] MEDS: ALBUTEROL SULFATE/IPRATROPIU 3 ML SOL IH SCH (18:47)
[2023-05-07] VITALS (29 sets, daily range): BP systolic 77–187; BP diastolic 48–139; PULSE 54–119; RESP 12–25; TEMP 97.4–97.9; O2SAT 95–100
[2023-05-07 06:16] LABS: BASOPHILS % (AUTO) 0.8 % (0.0-2.0); EOSINOPHILS # (AUTO) 0.2 K/uL (0-0.4); EOSINOPHILS % (AUTO) 3.3 % (0.0-4.0); HEMATOCRIT 41.4 % (36-52); HEMOGLOBIN 13.9 g/dL (12.0-18.0); LYMPHOCYTES # (AUTO) 0.8 K/uL (2.0-11.5); LYMPHOCYTES % (AUTO) 14.2 % (20.5-51.1); MEAN CORPUSCULAR HEMOGLOBIN 32 pg (27-31); MEAN CORPUSCULAR HGB CONC 34 g/dL (33-37); MEAN CORPUSCULAR VOLUME 94.4 fL (80-94); MONOCYTES # (AUTO) 0.7 K/uL (0.8-1.0); MONOCYTES % (AUTO) 12.2 % (1.7-9.3); NEUTROPHILS # (AUTO) 4.1 K/uL (1.8-7.7); NEUTROPHILS % (AUTO) 69.5 % (42.2-75.2); PLATELET COUNT (AUTO) 199 K/uL (140-450); RED BLOOD CELL COUNT(AUTO) 4.39 MIL/uL (4.20-6.10); RED CELL DISTRIBUTION WIDTH 14.1 % (11.6-13.7); WHITE BLOOD COUNT (AUTO) 5.9 K/uL (4.8-10.8)
[2023-05-07 06:40] LABS: ANION GAP 10.8 (8-16); CARBON DIOXIDE 27.9 mmol/L (21-32); CHLORIDE 104 mmol/L (98-107); CREATININE 0.7 mg/dL (0.6-1.3); GLUCOSE 109 mg/dL (74-106); POTASSIUM 3.7 mmol/L (3.5-5.1); SODIUM SERUM 139 mmol/L (136-145); UREA NITROGEN, BLOOD 16 mg/dL (7-18)
[2023-05-07 07:26] LABS: CALCIUM 8.5 mg/dL (8.5-10.1)
[2023-05-07] MEDS: DEXMEDETOMIDINE HCL 400 MCG in NACL 0.9% 96 ML IV PRN (10:01)
[2023-05-07] MEDS ORDERED: CALCIUM CHLORIDE 10% 1,000 MG in NACL 0.9% 100 ML IV ONE (12:30)
[2023-05-08] VITALS (27 sets, daily range): BP systolic 103–177; BP diastolic 49–98; PULSE 50–85; RESP 12–24; TEMP 96.8–97.8; O2SAT 99–100
[2023-05-08 06:33] LABS: BASOPHILS % (AUTO) 0.6 % (0.0-2.0); EOSINOPHILS # (AUTO) 0.2 K/uL (0-0.4); EOSINOPHILS % (AUTO) 3.4 % (0.0-4.0); HEMATOCRIT 39.7 % (36-52); HEMOGLOBIN 13.5 g/dL (12.0-18.0); LYMPHOCYTES # (AUTO) 0.8 K/uL (2.0-11.5); LYMPHOCYTES % (AUTO) 14.1 % (20.5-51.1); MEAN CORPUSCULAR HEMOGLOBIN 32 pg (27-31); MEAN CORPUSCULAR HGB CONC 34 g/dL (33-37); MEAN CORPUSCULAR VOLUME 93.3 fL (80-94); MONOCYTES # (AUTO) 0.7 K/uL (0.8-1.0); MONOCYTES % (AUTO) 11.6 % (1.7-9.3); NEUTROPHILS % (AUTO) 70.3 % (42.2-75.2); PLATELET COUNT (AUTO) 198 K/uL (140-450); RED BLOOD CELL COUNT(AUTO) 4.26 MIL/uL (4.20-6.10); RED CELL DISTRIBUTION WIDTH 13.7 % (11.6-13.7); WHITE BLOOD COUNT (AUTO) 5.7 K/uL (4.8-10.8)
[2023-05-08 06:45] LABS: ANION GAP 11.8 (8-16); CALCIUM 8.4 mg/dL (8.5-10.1); CARBON DIOXIDE 29.5 mmol/L (21-32); CHLORIDE 105 mmol/L (98-107); CREATININE 0.6 mg/dL (0.6-1.3); GLUCOSE 106 mg/dL (74-106); POTASSIUM 3.3 mmol/L (3.5-5.1); SODIUM SERUM 143 mmol/L (136-145); UREA NITROGEN, BLOOD 15 mg/dL (7-18)
[2023-05-08] MEDS ORDERED: ESCITALOPRAM 20 MG TAB PO SCH (09:00)
[2023-05-08] MEDS ORDERED: ESCITALOPRAM 5 MG PO SCH (09:00)
[2023-05-08] MEDS: QUEtiapine FUMARATE 25 MG TAB PO SCH (12:14)
[2023-05-08] MEDS: POTASSIUM CHLORIDE 10 MEQ TABER PO PRN (12:15)
[2023-05-09] VITALS (24 sets, daily range): BP systolic 101–161; BP diastolic 54–84; PULSE 56–110; RESP 12–23; TEMP 96.9–98; O2SAT 91–100
[2023-05-09 05:48] LABS: BASOPHILS % (AUTO) 0.5 % (0.0-2.0); EOSINOPHILS # (AUTO) 0.3 K/uL (0-0.4); EOSINOPHILS % (AUTO) 4.8 % (0.0-4.0); HEMATOCRIT 39.6 % (36-52); HEMOGLOBIN 13.4 g/dL (12.0-18.0); LYMPHOCYTES # (AUTO) 0.7 K/uL (2.0-11.5); LYMPHOCYTES % (AUTO) 10.7 % (20.5-51.1); MEAN CORPUSCULAR HEMOGLOBIN 32 pg (27-31); MEAN CORPUSCULAR HGB CONC 34 g/dL (33-37); MEAN CORPUSCULAR VOLUME 94.1 fL (80-94); MONOCYTES # (AUTO) 0.8 K/uL (0.8-1.0); NEUTROPHILS # (AUTO) 4.7 K/uL (1.8-7.7); PLATELET COUNT (AUTO) 204 K/uL (140-450); RED BLOOD CELL COUNT(AUTO) 4.21 MIL/uL (4.20-6.10); WHITE BLOOD COUNT (AUTO) 6.5 K/uL (4.8-10.8)
[2023-05-09 06:17] LABS: ANION GAP 12.9 (8-16); CALCIUM 8.5 mg/dL (8.5-10.1); CARBON DIOXIDE 27.4 mmol/L (21-32); CHLORIDE 106 mmol/L (98-107); CREATININE 0.7 mg/dL (0.6-1.3); GLUCOSE 97 mg/dL (74-106); POTASSIUM 3.3 mmol/L (3.5-5.1); SODIUM SERUM 143 mmol/L (136-145); UREA NITROGEN, BLOOD 17 mg/dL (7-18)
[2023-05-09] MEDS: QUEtiapine FUMARATE 25 MG TAB PO SCH (09:15)
[2023-05-09] MEDS: CRUSHER, PILL MC ONE ×2 (09:46→21:07)
[2023-05-10] VITALS (10 sets, daily range): BP systolic 132–156; BP diastolic 62–82; PULSE 70–93; RESP 16–20; TEMP 96.9–98.5; O2SAT 93–98
[2023-05-10 05:59] LABS: BASOPHILS % (AUTO) 0.2 % (0.0-2.0); EOSINOPHILS # (AUTO) 0.1 K/uL (0-0.4); EOSINOPHILS % (AUTO) 1.3 % (0.0-4.0); HEMATOCRIT 40.1 % (36-52); HEMOGLOBIN 13.7 g/dL (12.0-18.0); LYMPHOCYTES # (AUTO) 0.7 K/uL (2.0-11.5); LYMPHOCYTES % (AUTO) 7.9 % (20.5-51.1); MEAN CORPUSCULAR HEMOGLOBIN 32 pg (27-31); MEAN CORPUSCULAR HGB CONC 34 g/dL (33-37); MEAN CORPUSCULAR VOLUME 93.7 fL (80-94); MONOCYTES % (AUTO) 11.9 % (1.7-9.3); NEUTROPHILS # (AUTO) 6.9 K/uL (1.8-7.7); NEUTROPHILS % (AUTO) 78.7 % (42.2-75.2); PLATELET COUNT (AUTO) 210 K/uL (140-450); RED BLOOD CELL COUNT(AUTO) 4.28 MIL/uL (4.20-6.10); RED CELL DISTRIBUTION WIDTH 14.1 % (11.6-13.7); WHITE BLOOD COUNT (AUTO) 8.8 K/uL (4.8-10.8)
[2023-05-10 06:38] LABS: ANION GAP 11.6 (8-16); CALCIUM 8.8 mg/dL (8.5-10.1); CARBON DIOXIDE 28.9 mmol/L (21-32); CHLORIDE 107 mmol/L (98-107); CREATININE 1.1 mg/dL (0.6-1.3); GLUCOSE 122 mg/dL (74-106); POTASSIUM 3.5 mmol/L (3.5-5.1); SODIUM SERUM 144 mmol/L (136-145); UREA NITROGEN, BLOOD 35 mg/dL (7-18)
[2023-05-10] MEDS: AMIODARONE 200 MG TAB PO SCH (22:46)
[2023-05-10] MEDS: carvediloL 6.25 MG TAB PO SCH (22:48)
[2023-05-11] VITALS (13 sets, daily range): BP systolic 104–147; BP diastolic 57–90; PULSE 61–96; RESP 18–20; TEMP 96.6–98.8; O2SAT 94–99
[2023-05-11] MEDS ORDERED: CARV6.252 PO (15:05)
[2023-05-11] MEDS ORDERED: AMIO200T10 PO (15:05)
[2023-05-11] MEDS ORDERED: QUET25TA46 PO (15:05)
[2023-05-11] MEDS ORDERED: QUEtiapine FUMARATE 25 MG TAB PO SCH (21:00)
== END 2023-05-11 20:20 | disposition home health service (06) | DRG 193 ==
LOC: MED 00:16 → MTU 06:39 → OBSVTOIN 09:46 → MIC 14:02 → MTU 05-09 17:40
PROVIDERS: ADMIT Family Medicine; ATTEND Family Medicine
PROC: 02HV33Z Insertion of Infusion Device into Superior Vena Cava, Percutaneous Approach (ICD-10-PCS; principal; 2023-05-05)
PROC: B548ZZA Ultrasonography of Superior Vena Cava, Guidance (ICD-10-PCS; 2023-05-05)
DX: J15.4 Pneumonia due to other streptococci (principal); G93.41 Metabolic encephalopathy; J96.00 Acute respiratory failure, unspecified whether with hypoxia or hypercapnia; I10 Essential (primary) hypertension; F03.90 Unspecified dementia, unspecified severity, without behavioral disturbance, psychotic disturbance, mood disturbance, and anxiety; E11.9 Type 2 diabetes mellitus without complications; E78.5 Hyperlipidemia, unspecified; I48.0 Paroxysmal atrial fibrillation; Z79.899 Other long term (current) drug therapy; Z85.038 Personal history of other malignant neoplasm of large intestine
CPT/HCPCS: 36415; 70450; 71045; 72192; 80048; 80076; 80202; 81001; 82140; 82948; 83605; 84484; 85025; 87040; 87081; 87186; 93005; 94640; 94761; 96365; 97110; 97163-GP; 97530; 99285; J0282; J0456; J0696; J1160; J1650; J2060; J3372; J3490; J7060; J7614; Q0092

== ENCOUNTER 2023-05-18 05:10 | Inpatient (IN) | payer MEDICARE, OTHER ==
[2023-05-18] VITALS (7 sets, daily range): BP systolic 114–179; BP diastolic 72–87; PULSE 51–59; RESP 16–20; TEMP 97.2–209.5; O2SAT 96–98
[~2023-05-18] VITALS: Ht 167.6 cm; Wt 74.8 kg
[~2023-05-18 05:10] MED LIST changes: +AMIO200T10 PO; -AMOX1TAB8 PO; -BENZ-196 PO; +CARV6.252 PO; -CEPH-588 PO; -LISI-486 PO; +QUET25TA46 PO
[2023-05-18 06:12] LABS: BASOPHILS % (AUTO) 0.4 % (0.0-2.0); EOSINOPHILS # (AUTO) 0.3 K/uL (0-0.4); HEMATOCRIT 41.7 % (36-52); HEMOGLOBIN 14.1 g/dL (12.0-18.0); LYMPHOCYTES # (AUTO) 1.3 K/uL (2.0-11.5); LYMPHOCYTES % (AUTO) 13.7 % (20.5-51.1); MEAN CORPUSCULAR HEMOGLOBIN 32 pg (27-31); MEAN CORPUSCULAR HGB CONC 34 g/dL (33-37); MEAN CORPUSCULAR VOLUME 93.4 fL (80-94); MONOCYTES # (AUTO) 0.9 K/uL (0.8-1.0); MONOCYTES % (AUTO) 9.3 % (1.7-9.3); NEUTROPHILS # (AUTO) 7.1 K/uL (1.8-7.7); NEUTROPHILS % (AUTO) 73.6 % (42.2-75.2); PLATELET COUNT (AUTO) 223 K/uL (140-450); RED BLOOD CELL COUNT(AUTO) 4.47 MIL/uL (4.20-6.10); WHITE BLOOD COUNT (AUTO) 9.6 K/uL (4.8-10.8)
[2023-05-18] MEDS: NACL 0.9% 500 ML IV ONE (06:59)
[2023-05-18] MEDS ORDERED: cefTRIAXone 1,000 MG VIAL ONE (07:02)
[2023-05-18] MEDS ORDERED: AZITHROMYCIN 500 MG INJ VIAL IV ONE (07:02)
[2023-05-18] MEDS: AZITHROMYCIN 500 MG in DEXTROSE 5% 250 ML IV ONE (07:17)
[2023-05-18 07:29] LABS: LACTIC ACID 1.1 mmol/L (0.4-2.0)
[2023-05-18 07:50] LABS: ANION GAP 9.4 (8-16); CALCIUM 8.3 mg/dL (8.5-10.1); CARBON DIOXIDE 29.8 mmol/L (21-32); CHLORIDE 104 mmol/L (98-107); CREATININE 0.8 mg/dL (0.6-1.3); GLUCOSE 98 mg/dL (74-106); POTASSIUM 3.2 mmol/L (3.5-5.1); SODIUM SERUM 140 mmol/L (136-145); UREA NITROGEN, BLOOD 16 mg/dL (7-18)
[2023-05-18] MEDS ORDERED: HYDROcodone/APAP 5/325 MG 1 TAB TAB PO PRN (08:30)
[2023-05-18] MEDS ORDERED: ONDANSETRON 4 MG/2 ML VIAL IVP PRN (08:30)
[2023-05-18] MEDS ORDERED: ACETAMINOPHEN 325 MG TAB PO PRN ×2 (08:30→08:40)
[2023-05-18] MEDS ORDERED: MORPHINE SULFATE 4 MG/ML SYR IVP PRN (08:30)
[2023-05-18] MEDS ORDERED: MAG SULF 2000 MG/WATER PREMIX 50 ML IV PRN (08:40)
[2023-05-18] MEDS ORDERED: ZOLPIDEM 10 MG TAB PO PRN (08:40)
[2023-05-18] MEDS ORDERED: LORazepam 2 MG/ML VIAL IVP PRN (08:40)
[2023-05-18 09:27] LABS: BILIRUBIN,URINE NEGATIVE (NEGATIVE); BLOOD, URINE NEGATIVE (NEGATIVE); LEUKOCYTE ESTERASE ,URINE 1+ (NEGATIVE); NITRITE, URINE NEGATIVE (NEGATIVE); PH,URINE 6.5 (5.0-9.0); PROTEIN,URINE NEGATIVE (NEGATIVE); UGLUCOSE NEGATIVE (NEGATIVE); UROBILINOGEN,URINE 0.2 EU/dL (0.2 - 1)
[2023-05-18 09:28] LABS: COLOR,URINE YELLOW (YELLOW)
[2023-05-18 09:29] LABS: APPEARANCE,URINE HAZY (CLEAR)
[2023-05-18 09:39] LABS: BACTERIA,URINE 1+ /HPF (None Seen); MUCUS,URINE 1+ /LPF (None Seen); RBC,URINE 0-5 /HPF (0-5); SQUAMOUS EPITHELIAL CELL,UR 4-10 (MOD) /LPF (0-3 (FEW)); YEAST,URINE Moderate /HPF (None Seen)
[2023-05-18] MEDS: FUROSEMIDE 40 MG/4 ML VIAL IVP SCH (10:29)
[2023-05-18] MEDS ORDERED: CARV6.252 PO (11:26)
[2023-05-18] MEDS ORDERED: AMIO200T25 PO (11:26)
[2023-05-18] MEDS ORDERED: QUET25TA46 PO (11:26)
[2023-05-18] MEDS: POTASSIUM CHLORIDE 10 MEQ TABER PO PRN (15:37)
[2023-05-18] MEDS: CALCIUM GLUC 1 GM/50 mL NS BAG 50 ML IV SCH (15:45)
[2023-05-18] MEDS: AMIODARONE 200 MG TAB PO SCH (21:00)
[2023-05-18] MEDS: carvediloL 6.25 MG TAB PO SCH (21:00)
[2023-05-19] VITALS: BP 180/72; PULSE 54; PULSE 74; RESP 20; TEMP 97.6; O2SAT 95
[2023-05-19] MEDS: hydrALAZINE 20 MG/ML VIAL IVP PRN (02:53)
[2023-05-19 04:00] VITALS: BP 128/67; PULSE 57; PULSE 76; RESP 18; TEMP 97.5; O2SAT 96
[2023-05-19 05:48] LABS: BASOPHILS % (AUTO) 0.5 % (0.0-2.0); EOSINOPHILS # (AUTO) 0.2 K/uL (0-0.4); EOSINOPHILS % (AUTO) 2.3 % (0.0-4.0); HEMATOCRIT 41.4 % (36-52); LYMPHOCYTES % (AUTO) 12.5 % (20.5-51.1); MEAN CORPUSCULAR HEMOGLOBIN 32 pg (27-31); MEAN CORPUSCULAR HGB CONC 34 g/dL (33-37); MEAN CORPUSCULAR VOLUME 93.7 fL (80-94); MONOCYTES # (AUTO) 0.9 K/uL (0.8-1.0); MONOCYTES % (AUTO) 11.1 % (1.7-9.3); NEUTROPHILS # (AUTO) 5.7 K/uL (1.8-7.7); NEUTROPHILS % (AUTO) 73.6 % (42.2-75.2); PLATELET COUNT (AUTO) 229 K/uL (140-450); RED BLOOD CELL COUNT(AUTO) 4.42 MIL/uL (4.20-6.10); RED CELL DISTRIBUTION WIDTH 13.9 % (11.6-13.7); WHITE BLOOD COUNT (AUTO) 7.7 K/uL (4.8-10.8)
[2023-05-19 05:55] LABS: ANION GAP 10.9 (8-16); CALCIUM 8.4 mg/dL (8.5-10.1); CARBON DIOXIDE 31.3 mmol/L (21-32); CHLORIDE 105 mmol/L (98-107); CREATININE 0.8 mg/dL (0.6-1.3); GLUCOSE 90 mg/dL (74-106); POTASSIUM 3.2 mmol/L (3.5-5.1); SODIUM SERUM 144 mmol/L (136-145); UREA NITROGEN, BLOOD 13 mg/dL (7-18)
[2023-05-19 08:00] VITALS: BP 122/74; PULSE 67; PULSE 76; RESP 18; RESP 20; TEMP 97.3; O2SAT 96
[2023-05-19] MEDS: AZITHROMYCIN 500 MG in DEXTROSE 5% 250 ML IV SCH (08:53)
[2023-05-19] MEDS: QUEtiapine FUMARATE 25 MG TAB PO SCH (08:54)
[2023-05-19] MEDS: KCL 20 MEQ IN 100 mL PREMIX 100 ML IV PRN (10:17)
[2023-05-19] MEDS ORDERED: hydrALAZINE 25 MG TAB PO PRN (10:50)
[2023-05-19 16:00] VITALS: BP 116/61; PULSE 56; RESP 18; TEMP 97.7; O2SAT 92
[2023-05-19] MEDS ORDERED: FUROSEMIDE 40 MG/4 ML VIAL IVP SCH (17:00)
[2023-05-19 20:00] VITALS: BP 119/61; PULSE 68; RESP 18; TEMP 97.6; O2SAT 92
[2023-05-20 04:00] VITALS: BP 151/61; PULSE 71; RESP 16; TEMP 98; O2SAT 97
[2023-05-20 08:00] VITALS: PULSE 71; RESP 18; O2SAT 96
[2023-05-20 09:46] LABS: BASOPHILS # (AUTO) 0.1 K/uL (0.00-0.22); BASOPHILS % (AUTO) 0.7 % (0.0-2.0); EOSINOPHILS # (AUTO) 0.3 K/uL (0-0.4); EOSINOPHILS % (AUTO) 2.7 % (0.0-4.0); HEMATOCRIT 40.4 % (36-52); HEMOGLOBIN 13.8 g/dL (12.0-18.0); LYMPHOCYTES % (AUTO) 11.1 % (20.5-51.1); MEAN CORPUSCULAR HEMOGLOBIN 32 pg (27-31); MEAN CORPUSCULAR HGB CONC 34 g/dL (33-37); MEAN CORPUSCULAR VOLUME 93.4 fL (80-94); MONOCYTES # (AUTO) 0.9 K/uL (0.8-1.0); MONOCYTES % (AUTO) 9.4 % (1.7-9.3); NEUTROPHILS # (AUTO) 7.1 K/uL (1.8-7.7); NEUTROPHILS % (AUTO) 76.1 % (42.2-75.2); PLATELET COUNT (AUTO) 226 K/uL (140-450); RED BLOOD CELL COUNT(AUTO) 4.33 MIL/uL (4.20-6.10); RED CELL DISTRIBUTION WIDTH 14.3 % (11.6-13.7); WHITE BLOOD COUNT (AUTO) 9.3 K/uL (4.8-10.8)
[2023-05-20 10:08] LABS: ALANINE AMINOTRANSFERASE 21 U/L (12-78); ALBUMIN 2.8 g/dL (3.4-5.0); ALKALINE PHOSPHATASE 114 U/L (50-136); ANION GAP 8.1 (8-16); ASPARTATE AMINOTRANSFERASE 23 U/L (15-37); CALCIUM 8.6 mg/dL (8.5-10.1); CHLORIDE 105 mmol/L (98-107); GLUCOSE 129 mg/dL (74-106); POTASSIUM 3.1 mmol/L (3.5-5.1); SODIUM SERUM 143 mmol/L (136-145); TOTAL BILIRUBIN 0.8 mg/dL (0.0-1.0); UREA NITROGEN, BLOOD 25 mg/dL (7-18)
[2023-05-20 14:25] VITALS: BP 118/59; PULSE 65; RESP 18; TEMP 98.2
[2023-05-20] MEDS ORDERED: FOAM DRESSING TP PRN (15:10)
[2023-05-21] MEDS ORDERED: FOAM DRESSING TP SCH (13:00)
== END 2023-05-20 17:37 | disposition home health service (06) | DRG 640 ==
LOC: MED 05:10 → MTU 08:40 → MERGE 08:40 → MTU 14:19
PROVIDERS: ADMIT Family Medicine; ATTEND Family Medicine
DX: E87.6 Hypokalemia (principal); J69.0 Pneumonitis due to inhalation of food and vomit; E44.0 Moderate protein-calorie malnutrition; I50.32 Chronic diastolic (congestive) heart failure; I11.0 Hypertensive heart disease with heart failure; G30.9 Alzheimer's disease, unspecified; F02.80 Dementia in other diseases classified elsewhere, unspecified severity, without behavioral disturbance, psychotic disturbance, mood disturbance, and anxiety; Z68.26 Body mass index [BMI] 26.0-26.9, adult
CPT/HCPCS: 36415; 70450; 71045; 72125; 80048; 80053; 81001; 82550; 83605; 83880; 84484; 85025; 87040; 87081; 87086; 93005; 93880; 96365; 96367; 96372; 97110; 97116; 97163-GP; 97530; 99291; J0360; J0456; J0610; J0696; J1644; J1940; J3480; J7060; Q0092

== ENCOUNTER 2023-06-07 10:45 | Emergency (ER) | payer MEDICARE, OTHER ==
[~2023-06-07] VITALS: Ht 162.6 cm; Wt 59.0 kg
[~2023-06-07 10:45] MED LIST changes: +AMIO200T25 PO
[2023-06-07 10:49] VITALS: BP 157/74; RESP 16; O2SAT 98
[2023-06-07 14:30] VITALS: BP 135/63; PULSE 62; RESP 12; O2SAT 94
== END 2023-06-07 14:30 | disposition home or self-care (01) ==
LOC: MED 10:45
DX: S09.90XA Unspecified injury of head, initial encounter (principal); E11.9 Type 2 diabetes mellitus without complications; F03.90 Unspecified dementia, unspecified severity, without behavioral disturbance, psychotic disturbance, mood disturbance, and anxiety; I10 Essential (primary) hypertension; Z79.899 Other long term (current) drug therapy; W18.39XA Other fall on same level, initial encounter; Y92.89 Other specified places as the place of occurrence of the external cause; Y93.89 Activity, other specified; Y99.8 Other external cause status
CPT/HCPCS: 70450; 72125; 93005; 99284

== ENCOUNTER 2023-06-13 11:46 | Inpatient (IN) | payer MEDICARE, OTHER ==
[~2023-06-13] VITALS: Ht 167.6 cm; Wt 60.8 kg
[2023-06-13 11:52] VITALS: BP 148/72; PULSE 61; RESP 19; TEMP 97.8; O2SAT 98
[2023-06-13 14:42] LABS: BASOPHILS % (AUTO) 0.5 % (0.0-2.0); EOSINOPHILS # (AUTO) 0.1 K/uL (0-0.4); EOSINOPHILS % (AUTO) 0.8 % (0.0-4.0); HEMATOCRIT 43.5 % (36-52); HEMOGLOBIN 14.7 g/dL (12.0-18.0); LYMPHOCYTES % (AUTO) 10.4 % (20.5-51.1); MEAN CORPUSCULAR HEMOGLOBIN 32 pg (27-31); MEAN CORPUSCULAR HGB CONC 34 g/dL (33-37); MEAN CORPUSCULAR VOLUME 93.4 fL (80-94); MONOCYTES # (AUTO) 0.9 K/uL (0.8-1.0); MONOCYTES % (AUTO) 9.3 % (1.7-9.3); NEUTROPHILS # (AUTO) 7.9 K/uL (1.8-7.7); PLATELET COUNT (AUTO) 215 K/uL (140-450); RED BLOOD CELL COUNT(AUTO) 4.66 MIL/uL (4.20-6.10); RED CELL DISTRIBUTION WIDTH 14.8 % (11.6-13.7)
[2023-06-13 15:04] LABS: CALCIUM 8.6 mg/dL (8.5-10.1); CARBON DIOXIDE 26.8 mmol/L (21-32); CHLORIDE 100 mmol/L (98-107); CREATININE 0.8 mg/dL (0.6-1.3); GLUCOSE 106 mg/dL (74-106); POTASSIUM 3.8 mmol/L (3.5-5.1); SODIUM SERUM 136 mmol/L (136-145); UREA NITROGEN, BLOOD 16 mg/dL (7-18)
[2023-06-13 15:11] LABS: INR 1.14 (0.8-1.2); PARTIAL THROMBOPLASTIN TIME 29.5 secs (22-35.6); PROTHROMBIN TIME 11.9 secs (10.8-13.4)
[2023-06-13] MEDS ORDERED: ONDANSETRON 4 MG/2 ML VIAL IVP PRN (19:00)
[2023-06-13] MEDS ORDERED: KCL 20 MEQ IN 100 mL PREMIX 200 ML IV PRN (19:00)
[2023-06-13] MEDS ORDERED: MAG SULF 2000 MG/WATER PREMIX 50 ML IV PRN (19:00)
[2023-06-13] MEDS ORDERED: MORPHINE SULFATE 2 MG/ML SYR IVP PRN (19:00)
[2023-06-13] MEDS ORDERED: POLYETHYLENE GLYCOL 17 GM/PKT PO PRN (19:00)
[2023-06-13] MEDS ORDERED: NITROGLYCERIN 0.4 MG TAB SL PRN (19:05)
[2023-06-13] MEDS ORDERED: hydrALAZINE 20 MG/ML VIAL IVP PRN (19:10)
[2023-06-13] MEDS: NACL 0.9% 1,000 ML IV SCH (19:35)
[2023-06-13 19:56] VITALS: PULSE 66; RESP 18; O2SAT 98
[2023-06-13 20:15] VITALS: BP 156/73; PULSE 63; RESP 20; TEMP 97.5; O2SAT 97
[2023-06-13 20:23] VITALS: PULSE 64
[2023-06-13] MEDS: AMIODARONE 200 MG TAB PO SCH (20:39)
[2023-06-13] MEDS: carvediloL 6.25 MG TAB PO SCH (20:39)
[2023-06-13] MEDS: HYDROcodone/APAP 5/325 MG 1 TAB TAB PO PRN (20:40)
[2023-06-13 22:00] VITALS: PULSE 63; RESP 20; O2SAT 97
[2023-06-14] VITALS (9 sets, daily range): BP systolic 80–195; BP diastolic 30–97; PULSE 51–71; RESP 18–19; TEMP 97.4–99; O2SAT 99–100
[2023-06-14] MEDS: MELATONIN 3 MG TAB PO PRN (01:24)
[2023-06-14 07:19] LABS: BASOPHILS % (AUTO) 0.3 % (0.0-2.0); EOSINOPHILS % (AUTO) 0.5 % (0.0-4.0); HEMATOCRIT 46.2 % (36-52); HEMOGLOBIN 15.6 g/dL (12.0-18.0); LYMPHOCYTES # (AUTO) 1.1 K/uL (2.0-11.5); LYMPHOCYTES % (AUTO) 12.4 % (20.5-51.1); MEAN CORPUSCULAR HEMOGLOBIN 32 pg (27-31); MEAN CORPUSCULAR HGB CONC 34 g/dL (33-37); MEAN CORPUSCULAR VOLUME 93.7 fL (80-94); MONOCYTES # (AUTO) 0.9 K/uL (0.8-1.0); MONOCYTES % (AUTO) 10.3 % (1.7-9.3); NEUTROPHILS # (AUTO) 6.7 K/uL (1.8-7.7); NEUTROPHILS % (AUTO) 76.5 % (42.2-75.2); PLATELET COUNT (AUTO) 200 K/uL (140-450); RED BLOOD CELL COUNT(AUTO) 4.94 MIL/uL (4.20-6.10); RED CELL DISTRIBUTION WIDTH 14.6 % (11.6-13.7); WHITE BLOOD COUNT (AUTO) 8.8 K/uL (4.8-10.8)
[2023-06-14 07:51] LABS: ALANINE AMINOTRANSFERASE 34 U/L (12-78); ALBUMIN 3.1 g/dL (3.4-5.0); ALKALINE PHOSPHATASE 103 U/L (50-136); ANION GAP 13.8 (8-16); ASPARTATE AMINOTRANSFERASE 30 U/L (15-37); CALCIUM 8.5 mg/dL (8.5-10.1); CARBON DIOXIDE 27.3 mmol/L (21-32); CHLORIDE 99 mmol/L (98-107); CREATININE 0.7 mg/dL (0.6-1.3); GLUCOSE 124 mg/dL (74-106); MAGNESIUM 2.5 mg/dL (1.8-2.4); PHOSPHORUS 3.9 mg/dL (2.5-4.9); POTASSIUM 4.1 mmol/L (3.5-5.1); SODIUM SERUM 136 mmol/L (136-145); TOTAL BILIRUBIN 2.5 mg/dL (0.0-1.0); TOTAL PROTEIN, SERUM 6.7 g/dL (6.4-8.2); UREA NITROGEN, BLOOD 14 mg/dL (7-18)
[2023-06-14] MEDS: TAMSULOSIN 0.4 MG CAP PO SCH (08:39)
[2023-06-14] MEDS: GABAPENTIN 100 MG CAP PO SCH (08:40)
[2023-06-14] MEDS: ATORVASTATIN 20 MG TAB PO SCH (08:41)
[2023-06-14] MEDS: ESCITALOPRAM 20 MG TAB PO SCH (08:41)
[2023-06-14] MEDS: LIDOCAINE 5% 1 EA PATCH TP SCH (08:42)
[2023-06-14] MEDS: QUEtiapine FUMARATE 25 MG TAB PO SCH (08:44)
[2023-06-14] MEDS ORDERED: LORazepam 2 MG/ML VIAL IVP PRN (11:25)
[2023-06-14] MEDS: NACL 0.9% 1,000 ML IV STA (20:46)
[2023-06-14 22:00] LABS: LACTIC ACID 0.8 mmol/L (0.4-2.0)
[2023-06-15] VITALS (10 sets, daily range): BP systolic 104–132; BP diastolic 48–63; PULSE 57–72; RESP 16–18; TEMP 97.7–99; O2SAT 96–100
[2023-06-15] MEDS: TAMSULOSIN 0.4 MG CAP PO SCH (08:37)
[2023-06-15] MEDS: ATORVASTATIN 20 MG TAB PO SCH (08:37)
[2023-06-15] MEDS: ESCITALOPRAM PO SCH (08:47)
[2023-06-15] MEDS: LORazepam 2 MG/ML VIAL IVP PRN (11:46)
[2023-06-16] VITALS (9 sets, daily range): BP systolic 99–132; BP diastolic 48–75; PULSE 52–60; RESP 16–19; TEMP 97.2–98.6; O2SAT 95–100
[2023-06-16] MEDS: POTASSIUM CHL 20MEQ/D5-NS 1,000 ML IV SCH (09:40)
[2023-06-16 16:38] LABS: BASOPHILS % (AUTO) 0.3 % (0.0-2.0); EOSINOPHILS # (AUTO) 0.1 K/uL (0-0.4); HEMATOCRIT 38.3 % (36-52); HEMOGLOBIN 12.9 g/dL (12.0-18.0); LYMPHOCYTES # (AUTO) 0.6 K/uL (2.0-11.5); LYMPHOCYTES % (AUTO) 9.1 % (20.5-51.1); MEAN CORPUSCULAR HEMOGLOBIN 32 pg (27-31); MEAN CORPUSCULAR HGB CONC 34 g/dL (33-37); MEAN CORPUSCULAR VOLUME 94.4 fL (80-94); MONOCYTES # (AUTO) 0.8 K/uL (0.8-1.0); MONOCYTES % (AUTO) 11.4 % (1.7-9.3); NEUTROPHILS # (AUTO) 5.5 K/uL (1.8-7.7); NEUTROPHILS % (AUTO) 78.2 % (42.2-75.2); PLATELET COUNT (AUTO) 185 K/uL (140-450); RED BLOOD CELL COUNT(AUTO) 4.05 MIL/uL (4.20-6.10); RED CELL DISTRIBUTION WIDTH 14.3 % (11.6-13.7); WHITE BLOOD COUNT (AUTO) 7.1 K/uL (4.8-10.8)
[2023-06-16 16:53] LABS: INR 1.06 (0.8-1.2); PARTIAL THROMBOPLASTIN TIME 33.2 secs (22-35.6); PROTHROMBIN TIME 11.1 secs (10.8-13.4)
[2023-06-16 16:55] LABS: ALANINE AMINOTRANSFERASE 20 U/L (12-78); ALBUMIN 2.2 g/dL (3.4-5.0); ALKALINE PHOSPHATASE 78 U/L (50-136); ANION GAP 8.5 (8-16); ASPARTATE AMINOTRANSFERASE 18 U/L (15-37); CALCIUM 8.1 mg/dL (8.5-10.1); CARBON DIOXIDE 29.3 mmol/L (21-32); CHLORIDE 106 mmol/L (98-107); CREATININE 0.6 mg/dL (0.6-1.3); GLUCOSE 113 mg/dL (74-106); MAGNESIUM 2.4 mg/dL (1.8-2.4); PHOSPHORUS 2.6 mg/dL (2.5-4.9); POTASSIUM 3.8 mmol/L (3.5-5.1); SODIUM SERUM 140 mmol/L (136-145); TOTAL BILIRUBIN 1.3 mg/dL (0.0-1.0); TOTAL PROTEIN, SERUM 5.5 g/dL (6.4-8.2); UREA NITROGEN, BLOOD 24 mg/dL (7-18)
[2023-06-16] MEDS: ALBUTEROL SULFATE/IPRATROPIU 3 ML SOL IH SCH (19:32)
[2023-06-17] VITALS (13 sets, daily range): BP systolic 90–160; BP diastolic 58–70; PULSE 60–93; RESP 17–21; TEMP 97.2–98.3; O2SAT 93–98
[2023-06-17 06:11] LABS: ALANINE AMINOTRANSFERASE 19 U/L (12-78); ALBUMIN 2.4 g/dL (3.4-5.0); ALKALINE PHOSPHATASE 89 U/L (50-136); ANION GAP 10.6 (8-16); ASPARTATE AMINOTRANSFERASE 19 U/L (15-37); CALCIUM 8.6 mg/dL (8.5-10.1); CARBON DIOXIDE 27.6 mmol/L (21-32); CHLORIDE 107 mmol/L (98-107); CREATININE 0.6 mg/dL (0.6-1.3); GLUCOSE 136 mg/dL (74-106); MAGNESIUM 2.5 mg/dL (1.8-2.4); PHOSPHORUS 2.1 mg/dL (2.5-4.9); POTASSIUM 4.2 mmol/L (3.5-5.1); SODIUM SERUM 141 mmol/L (136-145); TOTAL PROTEIN, SERUM 6.2 g/dL (6.4-8.2); UREA NITROGEN, BLOOD 25 mg/dL (7-18)
[2023-06-17 06:23] LABS: BASOPHILS % (AUTO) 0.2 % (0.0-2.0); EOSINOPHILS # (AUTO) 0.1 K/uL (0-0.4); EOSINOPHILS % (AUTO) 1.4 % (0.0-4.0); HEMATOCRIT 42.3 % (36-52); HEMOGLOBIN 13.9 g/dL (12.0-18.0); LYMPHOCYTES % (AUTO) 12.2 % (20.5-51.1); MEAN CORPUSCULAR HEMOGLOBIN 31 pg (27-31); MEAN CORPUSCULAR HGB CONC 33 g/dL (33-37); MONOCYTES # (AUTO) 0.9 K/uL (0.8-1.0); MONOCYTES % (AUTO) 11.2 % (1.7-9.3); NEUTROPHILS # (AUTO) 5.9 K/uL (1.8-7.7); PLATELET COUNT (AUTO) 241 K/uL (140-450); RED BLOOD CELL COUNT(AUTO) 4.45 MIL/uL (4.20-6.10); RED CELL DISTRIBUTION WIDTH 14.7 % (11.6-13.7); WHITE BLOOD COUNT (AUTO) 7.9 K/uL (4.8-10.8)
[2023-06-17] MEDS: AMIODARONE 200 MG TAB PO SCH (09:00)
[2023-06-17] MEDS: carvediloL 3.125 MG TAB PO SCH (09:00)
[2023-06-17] MEDS ORDERED: MEMA1TAB PO (11:10)
[2023-06-17] MEDS ORDERED: QUET25TA46 PO (11:10)
[2023-06-17] MEDS ORDERED: K PH1TAB6 PO (11:14)
[2023-06-17] MEDS: MEMANTINE 10 MG TAB PO SCH (13:40)
[2023-06-17] MEDS: SODIUM PHOS / POTASSIUM PHOS 1 PKT PDR PO SCH (13:40)
[2023-06-17] MEDS: ACETAMINOPHEN 325 MG TAB PO PRN (13:41)
[2023-06-17] MEDS: MIDODRINE 5 MG TAB PO SCH (16:30)
[2023-06-17] MEDS ORDERED: PRO5 PO (16:31)
[2023-06-17] MEDS: DOXYCYCLINE 100 MG CAP PO SCH (16:40)
[2023-06-17] MEDS ORDERED: cefuroxime axetiL 250 MG TAB PO SCH (16:40)
[2023-06-17] MEDS ORDERED: CEPH500T PO (16:53)
[2023-06-17] MEDS ORDERED: CEPH500C16 PO (16:53)
[2023-06-17] MEDS ORDERED: DOXY-690 PO (16:53)
[2023-06-17] MEDS ORDERED: ASCO1CAP75 PO (16:55)
[2023-06-17] MEDS: cephALEXin 500 MG CAP PO SCH (17:04)
[2023-06-17] MEDS: QUEtiapine FUMARATE 25 MG TAB PO SCH (20:44)
[2023-06-18] VITALS: BP 150/66; PULSE 72; RESP 17; TEMP 97.3; O2SAT 98
[2023-06-18 07:21] LABS: ALANINE AMINOTRANSFERASE 13 U/L (12-78); ALBUMIN 2.3 g/dL (3.4-5.0); ALKALINE PHOSPHATASE 93 U/L (50-136); ANION GAP 11.1 (8-16); ASPARTATE AMINOTRANSFERASE 17 U/L (15-37); CALCIUM 8.4 mg/dL (8.5-10.1); CARBON DIOXIDE 29.7 mmol/L (21-32); CHLORIDE 106 mmol/L (98-107); CREATININE 0.6 mg/dL (0.6-1.3); GLUCOSE 120 mg/dL (74-106); MAGNESIUM 2.2 mg/dL (1.8-2.4); PHOSPHORUS 2.6 mg/dL (2.5-4.9); POTASSIUM 3.8 mmol/L (3.5-5.1); SODIUM SERUM 143 mmol/L (136-145); TOTAL BILIRUBIN 1.4 mg/dL (0.0-1.0); TOTAL PROTEIN, SERUM 5.9 g/dL (6.4-8.2); UREA NITROGEN, BLOOD 17 mg/dL (7-18)
[2023-06-18 07:55] VITALS: PULSE 68; RESP 18; O2SAT 98
[2023-06-18 08:00] VITALS: BP 158/74; PULSE 69; RESP 18; TEMP 97.7; O2SAT 98
[2023-06-18 09:53] LABS: BLOOD GAS BASE EXCESS 2.6 mmol/L (-2.0-2.0); BLOOD GAS HCO3 26.6 mmol/L (22-26); BLOOD GAS PH 7.452 (7.35-7.45)
[2023-06-18 11:48] VITALS: PULSE 69; RESP 18; O2SAT 95
[2023-06-18] MEDS: LORazepam 2 MG/ML VIAL IVP PRN (15:38)
[2023-06-18 15:53] VITALS: BP 138/74; PULSE 69; RESP 18; TEMP 97.7; O2SAT 95
[2023-06-18 16:00] VITALS: BP 113/75; PULSE 95; RESP 18; TEMP 98.6; O2SAT 99
== END 2023-06-18 18:00 | disposition home or self-care (01) | DRG 199 ==
LOC: MED 11:46 → MTU 15:45
PROVIDERS: ADMIT Family Medicine; ATTEND Family Medicine
DX: S27.0XXA Traumatic pneumothorax, initial encounter (principal); J96.01 Acute respiratory failure with hypoxia; N18.6 End stage renal disease; I50.30 Unspecified diastolic (congestive) heart failure; S22.41XA Multiple fractures of ribs, right side, initial encounter for closed fracture; I13.2 Hypertensive heart and chronic kidney disease with heart failure and with stage 5 chronic kidney disease, or end stage renal disease; F03.90 Unspecified dementia, unspecified severity, without behavioral disturbance, psychotic disturbance, mood disturbance, and anxiety; N40.0 Benign prostatic hyperplasia without lower urinary tract symptoms; W19.XXXA Unspecified fall, initial encounter; Y93.89 Activity, other specified; Y92.89 Other specified places as the place of occurrence of the external cause; Y99.8 Other external cause status; Z79.899 Other long term (current) drug therapy
CPT/HCPCS: 36415; 70450; 70486; 71045; 71101; 72125; 80048; 80053; 82948; 83605; 83735; 83880; 84100; 84484; 85025; 85610; 85730; 87081; 92526; 93005; 94640; 97110; 97112; 97116; 97163-GP; 97530; 99291; J0360; J2060

== ENCOUNTER 2023-07-13 07:41 | Emergency (ER) | payer MEDICARE, OTHER ==
[~2023-07-13] VITALS: Ht 157.5 cm; Wt 68.0 kg
[~2023-07-13 07:41] MED LIST changes: -AMIO200T10 PO; +ASCO1CAP75 PO; -CARV6.252 PO; +CEPH500T PO; +DOXY-690 PO; -INUL1CTB PO; +K PH1TAB6 PO; +MEMA1TAB PO
[2023-07-13 07:43] VITALS: BP 156/72; PULSE 56; RESP 16; TEMP 97.5; O2SAT 97
[2023-07-13 08:11] VITALS: PULSE 55
[2023-07-13 08:38] LABS: BASOPHILS # (AUTO) 0.1 K/uL (0.00-0.22); BASOPHILS % (AUTO) 0.9 % (0.0-2.0); EOSINOPHILS # (AUTO) 0.2 K/uL (0-0.4); EOSINOPHILS % (AUTO) 3.7 % (0.0-4.0); HEMATOCRIT 42.1 % (36-52); HEMOGLOBIN 14.2 g/dL (12.0-18.0); LYMPHOCYTES % (AUTO) 17.1 % (20.5-51.1); MEAN CORPUSCULAR HEMOGLOBIN 32 pg (27-31); MEAN CORPUSCULAR HGB CONC 34 g/dL (33-37); MEAN CORPUSCULAR VOLUME 94.3 fL (80-94); MONOCYTES # (AUTO) 0.5 K/uL (0.8-1.0); MONOCYTES % (AUTO) 8.5 % (1.7-9.3); NEUTROPHILS # (AUTO) 3.9 K/uL (1.8-7.7); NEUTROPHILS % (AUTO) 69.8 % (42.2-75.2); PLATELET COUNT (AUTO) 176 K/uL (140-450); RED BLOOD CELL COUNT(AUTO) 4.46 MIL/uL (4.20-6.10); RED CELL DISTRIBUTION WIDTH 16.4 % (11.6-13.7); WHITE BLOOD COUNT (AUTO) 5.7 K/uL (4.8-10.8)
[2023-07-13 08:41] VITALS: O2SAT 97
[2023-07-13 08:50] LABS: ANION GAP 7.2 (8-16); CALCIUM 8.2 mg/dL (8.5-10.1); CARBON DIOXIDE 31.5 mmol/L (21-32); CHLORIDE 103 mmol/L (98-107); CREATININE 0.8 mg/dL (0.6-1.3); GLUCOSE 104 mg/dL (74-106); POTASSIUM 3.7 mmol/L (3.5-5.1); SODIUM SERUM 138 mmol/L (136-145); UREA NITROGEN, BLOOD 12 mg/dL (7-18)
== END 2023-07-13 11:27 | disposition home or self-care (01) ==
LOC: MED 07:41
DX: M25.551 Pain in right hip (principal); R03.0 Elevated blood-pressure reading, without diagnosis of hypertension; Z85.038 Personal history of other malignant neoplasm of large intestine; Z85.46 Personal history of malignant neoplasm of prostate; Z79.899 Other long term (current) drug therapy
CPT/HCPCS: 36415; 71045; 73502; 80048; 83880; 84484; 85025; 93005; 99285